=== PATIENT | female | born 1930 | race Caucasian/White ===

== ENCOUNTER 2018-05-05 14:59 | Inpatient (IN) ==
--- NOTE | 2018-05-05 16:42 | XR ---
EXAM DATE: 05/05/2018 4:30 PM EST AGE/SEX: 87 years / Female INDICATIONS: Short of breath CLINICAL DATA: This is the patient's initial encounter. Patient reports that signs and symptoms have been present for 1 day and indicates a pain score of Nonresponsive. MEDICAL/SURGICAL HISTORY: Non-responsive. Non-responsive. COMPARISON: . FINDINGS: Cardiomegaly present with basilar airspace disease and small pleural effusions. Findings most charact eristic of mild congestive heart failure. No pneumothorax. Tortuous aorta. Cardiomegaly with basilar airspace disease and small effusions most characteristic of mild congestive heart failure. CONCLUSION: Electronically signed by: Abdulaziz Kay MD Board Certified Radiologist 05/05/2018 4:41 PM EST
[2018-05-05 16:53] LABS: Baso # (Auto) 0.1 th/mm3 (0.0-0.2); Baso % (Auto) 0.8 % (0.0-2.0); Eos # (Auto) 0.1 th/mm3 (0.0-0.4); Eos % (Auto) 1.1 % (0.0-4.0); Hematocrit 40.7 % (35.0-46.0); Hemoglobin 13.7 gm/dL (11.6-15.3); Lymph # (Auto) 1.3 th/mm3 (1.0-4.8); Lymph % (Auto) 15.8 % (9.0-44.0); Mean Corpuscular HGB Conc 33.7 % (32.0-36.0); Mean Corpuscular Hemoglobin 29.1 pg (27.0-34.0); Mean Corpuscular Volume 86.3 fL (80.0-100.0); Mean Platelet Volume 8.2 fL (7.0-11.0); Mono # (Auto) 0.6 th/mm3 (0.0-0.9); Neut # (Auto) 6.1 th/mm3 (1.8-7.7); Neut % (Auto) 75.3 % (16.0-70.0); Platelet Count 226 th/mm3 (150-450); Red Blood Count 4.72 mil/mm3 (4.00-5.30); Red Cell Distribution Width 16.2 % (11.6-17.2); White Blood Count 8.1 th/mm3 (4.0-11.0)
[2018-05-05 17:13] LABS: Albumin 3.2 g/dL (3.4-5.0); Anion Gap 9 meq/L (5-15); Aspartate Aminotransferase 29 U/L (15-37); Blood Urea Nitrogen 16 mg/dL (7-18); Calcium 8.7 mg/dL (8.5-10.1); Carbon Dioxide 32.3 meq/L (21.0-32.0); Chloride 101 meq/L (98-107); Glomerular Filtration Rate 50 mL/min (>89); Glucose,Random 122 mg/dL (74-106); Magnesium 2.1 mg/dL (1.5-2.5); Potassium 3.4 meq/L (3.5-5.1); Sodium 142 meq/L (136-145)
[2018-05-05] MEDS ORDERED: ALPRAZolam 0.25 MG Tablet PO ONE (17:16)
[2018-05-05 17:25] LABS: Alanine Aminotransferase 35 U/L (10-53); Alkaline Phosphatase 96 U/L (45-117); Total Protein 6.1 g/dL (6.4-8.2)
[2018-05-05 18:05] LABS: Bilirubin,Urine Negative (Negative); Clarity,Urine Clear (Clear); Color,Urine Yellow (Yellw/Straw); Glucose,Urine (UA) Negative (Negative); Leukocyte Esterase,Urine Negative (Negative); Mucus,Urine Few /lpf (Occasional); Nitrite,Urine Negative (Negative); Specific Gravity,Urine 1.013 (1.002-1.035)
--- NOTE | 2018-05-05 18:23 | ED ---
HPI General Chief complaint: Medical Clearance Stated complaint: abd pain Time Seen by Provider: 05/05/18 15:28 Source: patient, family and EMS Mode of arrival: EMS Limitations: other History of Present Illness HPI narrative: Patient is an 87-year-old female presenting to the emergency department via EMS after experiencing shortness of breath at her living facility. Patient went outside, she then laid herself on the ground and started yelling that she could not breathe. This was witnessed, patient did not hurt herself or hit her head. When EMS arrived on scene her O2 sat saturation was 93% on room air. Patient normally wears oxygen, she was not wearing oxygen at the time that she went outside. She is new to the area, she moved here to be closer to her family. Patient is not forthcoming with information. She continues to repeat that she is not wanting to be a burden to her family and what ever her son says is what she says. She reported that she is indifferent as to whether or not she lives or dies but denies any suicidal ideations. Patient does report shortness of breath. Her son states that she was diagnosed with congestive heart failure approximately 1 month ago. Patient has a history of depression, she is currently on Paxil 20 mg daily. She states she has been on this dose since her mother well over 10-15 years ago. Patient is tearful. She is answering questions vaguely. Patient states she cannot remember anything, she reports that she does not know why she told staff to call 911. Related Data Home Medications Medication Instructions Recorded Confirmed apixaban [Eliquis] 2.5 mg PO BID 05/05/18 05/05/18 aspirin 81 mg PO DAILY 05/05/18 05/05/18 atorvastatin 10 mg PO DAILY 05/05/18 05/05/18 furosemide 40 mg PO DAILY 05/05/18 05/05/18 gabapentin 200 mg PO DAILY 05/05/18 05/05/18 metoprolol tartrate 50 mg PO BID 05/05/18 05/05/18 pantoprazole 40 mg PO DAILY 05/05/18 05/05/18 paroxetine HCl 20 mg PO DAILY 05/05/18 05/05/18 potassium chloride 10 meq PO BID 05/05/18 05/05/18 quinapril 20 mg PO BID 05/05/18 05/05/18 Allergies Allergy/AdvReac Type Severity Reaction Status Date / Time Penicillins Allergy Anaphylaxis Verified 05/05/18 16:13 procaine [From Novocain] Allergy Itching Verified 05/05/18 16:13 Review of Systems ROS: all other systems reviewed are negative PMFSH Medical History Medical History Anxiety (Acute) CHF (congestive heart failure) (Acute) COPD (chronic obstructive pulmonary disease) (Acute) Depression (Acute) Social History Social History Substance History: No History of Abuse Second Hand Smoke Exposure: No Smoking Status: Former smoker Tobacco Type: Cigarettes How Often Do You Have a Drink Containing Alcohol: Never Recent Travel in [facility] within the Last 8 Weeks: No Recent Out of Country Travel within the Last 8 Weeks: No Immunization History Tetanus Immunization: Unsure Exam Narrative Exam Narrative: GENERAL: Well-developed, well-nourished, alert elderly female. Presenting in no acute distress. SKIN: Focused skin assessment warm/dry. HEAD: Atraumatic. Normocephalic. EYES: Pupils equal and round. No scleral icterus. No injection or drainage. ENT: No nasal bleeding or discharge. Mucous membranes pink and moist. NECK: Trachea midline. No JVD. CARDIOVASCULAR: Regular rate and rhythm. No murmur appreciated. RESPIRATORY: No accessory muscle use. Clear to auscultation. Breath sounds equal bilaterally. GASTROINTESTINAL: Abdomen soft, non-tender, nondistended. Hepatic and splenic margins not palpable. MUSCULOSKELETAL: No obvious deformities. No clubbing. No cyanosis. No edema. NEUROLOGICAL: Awake and alert. No obvious cranial nerve deficits. Motor grossly within normal limits. Normal speech. PSYCHIATRIC: Depressed mood and anxious affect; insight and judgment normal. Course Initial Documented Vital Signs Temperature 98.7 F 05/05/18 15:14 Pulse Rate 66 05/05/18 15:14 Respiratory Rate 22 05/05/18 15:14 Blood Pressure 125/58 L 05/05/18 15:14 Pulse Oximetry 98 05/05/18 15:14 Last Documented Vital Signs Temperature 98.1 F 05/13/18 16:00 Pulse Rate 103 H 05/13/18 16:00 Respiratory Rate 20 05/13/18 16:00 Blood Pressure 111/64 05/13/18 16:00 Pulse Oximetry 98 05/13/18 16:00 Medical Decision Making MDM Narrative Medical decision making narrative: Patient presented with her family, she downplayed any physical symptoms initially stating that she felt whenever her son said she feels. Workup was initiated, labs and imaging ordered. Patient appeared anxious on arrival, she was given Xanax 0.25 mg orally. EKG shows afib w/ RVR at a rate of 102. Pt has hx of afib. Chest x-ray shows mild CHF. CBC with no acute findings, chemistry with potassium at 3.4, oral replacement was ordered. BNP is elevated at 904. Patient was reassessed, she continues to appear very anxious, she started to report abdominal pain, she was tender diffusely. CT scan of the abdomen and pelvis ordered. Ativan 0.5 mg IV x1 dose ordered. Additionally patient will be given Lasix IV. Will reassess. Ct of the abd/pelvis resulted, showed a previous repair of a AAA with possible endoleak. Discussed with my attending physician. Consulted vascular surgery, Dr. Hawthorne. No emergent intervention. Consult placed, he will evaluate patient in the AM. He does not believe this is the cause of patients abdominal pain. Pt will be admitted for obervation, discussed with Dr. Lama who accepted admit. Discussed need for psych eval for depression/anxiety as well. HR has been between 95-102, pt is anxious. She was given additional dose of IV ativan. Medical Screen Exam Complete: Yes Emergency Medical Condition: Yes Differential Diagnosis Differential Diagnosis: CHF versus metabolic abnormality versus COPD exacerbation versus arrhythmia versus depression versus other Lab Data Lab results reviewed: Yes I reviewed the patient's lab results. Result diagrams: 05/07/18 07:35 05/13/18 11:41 Lab Results 05/05/18 05/05/18 05/05/18 Range/Units 16:39 16:39 16:39 WBC 8.1 (4.0-11.0) th/mm3 RBC 4.72 (4.00-5.30) mil/mm3 Hgb 13.7 (11.6-15.3) gm/dL Hct 40.7 (35.0-46.0) % MCV 86.3 (80.0-100.0) fL MCH 29.1 (27.0-34.0) pg MCHC 33.7 (32.0-36.0) % RDW 16.2 (11.6-17.2) % Plt Count 226 (150-450) th/mm3 MPV 8.2 (7.0-11.0) fL Neut % (Auto) 75.3 H (16.0-70.0) % Lymph % (Auto) 15.8 (9.0-44.0) % [place] % (Auto) 7.0 (0.0-8.0) % Eos % (Auto) 1.1 (0.0-4.0) % Baso % (Auto) 0.8 (0.0-2.0) % Neut # (Auto) 6.1 (1.8-7.7) th/mm3 Lymph # (Auto) 1.3 (1.0-4.8) th/mm3 [place] # (Auto) 0.6 (0.0-0.9) th/mm3 Eos # (Auto) 0.1 (0.0-0.4) th/mm3 Baso # (Auto) 0.1 (0.0-0.2) th/mm3 WBC Differential . Differential Comment Auto diff final Sodium 142 (136-145) meq/L Potassium 3.4 L (3.5-5.1) meq/L Chloride 101 (98-107) meq/L Carbon Dioxide 32.3 H (21.0-32.0) meq/L Anion Gap 9 (5-15) meq/L BUN 16 (7-18) mg/dL Creatinine 1.04 H (0.50-1.00) mg/dL Estimated GFR 50 L (>89) mL/min Random Glucose 122 H (74-106) mg/dL Calcium 8.7 (8.5-10.1) mg/dL Magnesium 2.1 (1.5-2.5) mg/dL Total Bilirubin 0.8 (0.2-1.0) mg/dL AST 29 (15-37) U/L ALT 35 (10-53) U/L Alkaline Phosphatase 96 (45-117) U/L Troponin I Less than 0.02 L (0.02-0.05) ng/mL B-Natriuretic Peptide 905 H (0-100) pg/mL Total Protein 6.1 L (6.4-8.2) g/dL Albumin 3.2 L (3.4-5.0) g/dL TSH 1.920 (0.358-3.740) uIU/mL Urine Color (Yellw/Straw) Urine Clarity (Clear) Urine pH (5.0-8.5) Ur Specific [place] (1.002-1.035) Urine Protein (Neg-Trace) mg/dL Urine Glucose (UA) (Negative) mg/dL Urine Ketones (Negative) mg/dL Urine Occult Blood (Negative) Urine Nitrate (Negative) Urine Bilirubin (Negative) Urine Urobilinogen (Less than 2) mg/dL Ur Leukocyte Esterase (Negative) Urine RBC (0-3) /hpf Urine WBC (0-5) /hpf Urine Mucus (Occasional) /lpf Micro UA Comment Ur Microscopic Review Urine Culture Comments 05/05/18 05/06/18 05/06/18 Range/Units 17:30 00:44 03:34 WBC 8.9 (4.0-11.0) th/mm3 RBC 4.81 (4.00-5.30) mil/mm3 Hgb 13.7 (11.6-15.3) gm/dL Hct 41.7 (35.0-46.0) % MCV 86.7 (80.0-100.0) fL MCH 28.5 (27.0-34.0) pg MCHC 32.8 (32.0-36.0) % RDW 16.4 (11.6-17.2) % Plt Count 213 (150-450) th/mm3 MPV 8.5 (7.0-11.0) fL Neut % (Auto) 65.8 (16.0-70.0) % Lymph % (Auto) 23.1 (9.0-44.0) % [place] % (Auto) 7.9 (0.0-8.0) % Eos % (Auto) 2.2 (0.0-4.0) % Baso % (Auto) 1.0 (0.0-2.0) % Neut # (Auto) 5.9 (1.8-7.7) th/mm3 Lymph # (Auto) 2.1 (1.0-4.8) th/mm3 [place] # (Auto) 0.7 (0.0-0.9) th/mm3 Eos # (Auto) 0.2 (0.0-0.4) th/mm3 Baso # (Auto) 0.1 (0.0-0.2) th/mm3 WBC Differential . Differential Comment Auto diff final Sodium (136-145) meq/L Potassium (3.5-5.1) meq/L Chloride (98-107) meq/L Carbon Dioxide (21.0-32.0) meq/L Anion Gap (5-15) meq/L BUN (7-18) mg/dL Creatinine (0.50-1.00) mg/dL Estimated GFR (>89) mL/min Random Glucose (74-106) mg/dL Calcium (8.5-10.1) mg/dL Magnesium (1.5-2.5) mg/dL Total Bilirubin (0.2-1.0) mg/dL AST (15-37) U/L ALT (10-53) U/L Alkaline Phosphatase (45-117) U/L Troponin I Less than 0.02 L (0.02-0.05) ng/mL B-Natriuretic Peptide (0-100) pg/mL Total Protein (6.4-8.2) g/dL Albumin (3.4-5.0) g/dL TSH (0.358-3.740) uIU/mL Urine Color Yellow (Yellw/Straw) Urine Clarity Clear (Clear) Urine pH 7.0 (5.0-8.5) Ur Specific [place] 1.013 (1.002-1.035) Urine Protein Negative (Neg-Trace) mg/dL Urine Glucose (UA) Negative (Negative) mg/dL Urine Ketones Negative (Negative) mg/dL Urine Occult Blood Negative (Negative) Urine Nitrate Negative (Negative) Urine Bilirubin Negative (Negative) Urine Urobilinogen 1.0 (Less than 2) mg/dL Ur Leukocyte Esterase Negative (Negative) Urine RBC 1 (0-3) /hpf Urine WBC Less than 1 (0-5) /hpf Urine Mucus Few H (Occasional) /lpf Micro UA Comment Cath-culture not ind Ur Microscopic Review Not Reportable Urine Culture Comments Cath-cult not ind 05/06/18 05/07/18 05/07/18 Range/Units 03:34 07:35 07:35 WBC 6.6 (4.0-11.0) th/mm3 RBC 4.79 (4.00-5.30) mil/mm3 Hgb 14.3 (11.6-15.3) gm/dL Hct 40.9 (35.0-46.0) % MCV 85.5 (80.0-100.0) fL MCH 29.8 (27.0-34.0) pg MCHC 34.8 (32.0-36.0) % RDW 16.2 (11.6-17.2) % Plt Count 234 (150-450) th/mm3 MPV 8.2 (7.0-11.0) fL Neut % (Auto) 79.6 H (16.0-70.0) % Lymph % (Auto) 15.4 (9.0-44.0) % [place] % (Auto) 4.3 (0.0-8.0) % Eos % (Auto) 0.1 (0.0-4.0) % Baso % (Auto) 0.6 (0.0-2.0) % Neut # (Auto) 5.2 (1.8-7.7) th/mm3 Lymph # (Auto) 1.0 (1.0-4.8) th/mm3 [place] # (Auto) 0.3 (0.0-0.9) th/mm3 Eos # (Auto) 0.0 (0.0-0.4) th/mm3 Baso # (Auto) 0.0 (0.0-0.2) th/mm3 WBC Differential . Differential Comment Auto diff final Sodium 141 137 (136-145) meq/L Potassium 3.6 3.9 (3.5-5.1) meq/L Chloride 100 98 (98-107) meq/L Carbon Dioxide 35.8 H 32.7 H (21.0-32.0) meq/L Anion Gap 5 6 (5-15) meq/L BUN 15 18 (7-18) mg/dL Creatinine 0.91 0.81 (0.50-1.00) mg/dL Estimated GFR 59 L 67 L (>89) mL/min Random Glucose 122 H 140 H (74-106) mg/dL Calcium 9.0 9.2 (8.5-10.1) mg/dL Magnesium (1.5-2.5) mg/dL Total Bilirubin 0.6 (0.2-1.0) mg/dL AST 26 (15-37) U/L ALT 30 (10-53) U/L Alkaline Phosphatase 94 (45-117) U/L Troponin I Less than 0.02 L (0.02-0.05) ng/mL B-Natriuretic Peptide (0-100) pg/mL Total Protein 6.0 L (6.4-8.2) g/dL Albumin 3.1 L (3.4-5.0) g/dL TSH (0.358-3.740) uIU/mL Urine Color (Yellw/Straw) Urine Clarity (Clear) Urine pH (5.0-8.5) Ur Specific [place] (1.002-1.035) Urine Protein (Neg-Trace) mg/dL Urine Glucose (UA) (Negative) mg/dL Urine Ketones (Negative) mg/dL Urine Occult Blood (Negative) Urine Nitrate (Negative) Urine Bilirubin (Negative) Urine Urobilinogen (Less than 2) mg/dL Ur Leukocyte Esterase (Negative) Urine RBC (0-3) /hpf Urine WBC (0-5) /hpf Urine Mucus (Occasional) /lpf Micro UA Comment Ur Microscopic Review Urine Culture Comments 05/13/18 05/13/18 Range/Units 08:45 11:41 WBC (4.0-11.0) th/mm3 RBC (4.00-5.30) mil/mm3 Hgb (11.6-15.3) gm/dL Hct (35.0-46.0) % MCV (80.0-100.0) fL MCH (27.0-34.0) pg MCHC (32.0-36.0) % RDW (11.6-17.2) % Plt Count (150-450) th/mm3 MPV (7.0-11.0) fL Neut % (Auto) (16.0-70.0) % Lymph % (Auto) (9.0-44.0) % [place] % (Auto) (0.0-8.0) % Eos % (Auto) (0.0-4.0) % Baso % (Auto) (0.0-2.0) % Neut # (Auto) (1.8-7.7) th/mm3 Lymph # (Auto) (1.0-4.8) th/mm3 [place] # (Auto) (0.0-0.9) th/mm3 Eos # (Auto) (0.0-0.4) th/mm3 Baso # (Auto) (0.0-0.2) th/mm3 WBC Differential Differential Comment Sodium 128 L 129 L (136-145) meq/L Potassium 4.7 4.4 (3.5-5.1) meq/L Chloride 95 L 93 L (98-107) meq/L Carbon Dioxide 29.3 30.2 (21.0-32.0) meq/L Anion Gap 4 L 6 (5-15) meq/L BUN 20 H 20 H (7-18) mg/dL Creatinine 0.71 0.71 (0.50-1.00) mg/dL Estimated GFR 78 L 78 L (>89) mL/min Random Glucose 99 104 (74-106) mg/dL Calcium 9.0 9.0 (8.5-10.1) mg/dL Magnesium (1.5-2.5) mg/dL Total Bilirubin (0.2-1.0) mg/dL AST (15-37) U/L ALT (10-53) U/L Alkaline Phosphatase (45-117) U/L Troponin I (0.02-0.05) ng/mL B-Natriuretic Peptide (0-100) pg/mL Total Protein (6.4-8.2) g/dL Albumin (3.4-5.0) g/dL TSH (0.358-3.740) uIU/mL Urine Color (Yellw/Straw) Urine Clarity (Clear) Urine pH (5.0-8.5) Ur Specific [place] (1.002-1.035) Urine Protein (Neg-Trace) mg/dL Urine Glucose (UA) (Negative) mg/dL Urine Ketones (Negative) mg/dL Urine Occult Blood (Negative) Urine Nitrate (Negative) Urine Bilirubin (Negative) Urine Urobilinogen (Less than 2) mg/dL Ur Leukocyte Esterase (Negative) Urine RBC (0-3) /hpf Urine WBC (0-5) /hpf Urine Mucus (Occasional) /lpf Micro UA Comment Ur Microscopic Review Urine Culture Comments Imaging Data Radiologist's impression: Chest X-Ray 05/05/18 16:18 CONCLUSION: Head CT 05/05/18 16:18 CONCLUSION: 1. No acute findings. Mild chronic white matter ischemic changes. . Abdomen/Pelvis CT 05/05/18 19:33 CONCLUSION: 1. Status post endovascular repair of a large abdominal aortic aneurysm with possible small endoleak inferiorly within the aneurysm sac. 2. Otherwise no acute findings within the abdomen and pelvis. No bowel obstruction, free fluid or free air. 3. Small to moderate right pleural effusion with right basilar and mild left basilar airspace disease. Cardiomegaly. Discharge Plan Discharge Disposition Patient Disposition: ED Admit(ED Internal Use Only) Discharge Condition Condition: Stable Discharge Order Discharge Orders: Discharge Order (Routine); Ordered 05/13/18 Ordered By: Aurelio Adam ED Use Only Admit Order (Routine); Ordered 05/05/18 Ordered By: Naye Maloney Discharge Details Anticipated Discharge Date: 05/11/18 Diagnosis: Atrial fibrillation with rapid ventricular response, CHF (congestive heart failure), Endoleak post endovascular aneurysm repair, Anxiety and depression Physicians Team ED Provider: Ghassan Weller ED Midlevel Provider: Naye Maloney Primary Care Provider: UNKNOWN, Attending Provider: Aurelio Adam Other Providers: Rodo Hawthorne ; Shant Bran ; Deon Loredo ; Alex Hurley ; [facility],Agency Status ED Status: Left Department Discharge Information Discharge Date/Time: 05/05/18 23:17
--- NOTE | 2018-05-05 18:32 | CT ---
EXAM DATE: 05/05/2018 6:22 PM EST AGE/SEX: 87 years / Female INDICATIONS: Altered mental status. CLINICAL DATA: This is the patient's initial encounter. Patient reports that signs and symptoms have been present for 1 day and indicates a pain score of 0/10. MEDICAL/SURGICAL HISTORY: Chronic obstructive pulmonary disease. Congestive heart failure. None. RADIATION DOSE: 56.35 CTDI (mGy) COMPARISON: No prior exams available for comparison. TECHNIQUE: CT of the head without contrast. Using automated exposure control and adjustment of the mA and/or kV according to patient size, radiation dose was kept as low as reasonably achievable to ob tain optimal diagnostic quality images. DICOM format image data is available electronically for revi ew and comparison. FINDINGS: Cerebrum: The ventricles are normal for age. No evidence of midline shift, mass lesion, hemorrhage or acute infarction. No extraaxial fluid collections are seen. Posterior Fossa: The cerebellum and brainstem are intact. The 4th ventricle is midline. The cerebe llopontine angle is unremarkable. Extracranial: The visualized portion of the orbits is intact. Skull: The calvaria is intact. No evidence of skull fracture. CONCLUSION: 1. No acute findings. Mild chronic white matter ischemic changes. . Electronically signed by: Abdulaziz Kay MD Board Certified Radiologist 05/05/2018 6:30 PM EST
[2018-05-05] MEDS ORDERED: Metoprolol Inj 5 MG/5 ML Vial IV.PUSH ONE ×2 (18:56→21:49)
--- NOTE | 2018-05-05 20:28 | ECG ---
Date Performed: 05/05/2018 Time Performed: 17:13:04 PTAGE: 87 years EKG: ATRIAL FIBRILLATION WITH RAPID VENTRICULAR RESPONSE BORDERLINE LEFT AXIS DEVIATION NONSPECI FIC ST & T-WAVE ABNORMALITY ABNORMAL RHYTHM ECG NO PREVIOUS TRACING DOCTOR: Severiano Sahu Interpretating Date/Time 05/05/2018 20:27:25
--- NOTE | 2018-05-05 21:14 | CT ---
EXAM DATE: 05/05/2018 8:41 PM EST AGE/SEX: 87 years / Female INDICATIONS: Abdominal pain since November CLINICAL DATA: This is the patient's initial encounter. Patient reports that signs and symptoms have been present for 1 day and indicates a pain score of 6/10. MEDICAL/SURGICAL HISTORY: Congestive heart failure. Chronic obstructive pulmonary disease. Non e. ORAL CONTRAST: No oral contrast ingested. RADIATION DOSE: 16.23 CTDI (mGy) COMPARISON: No prior exams available for comparison. TECHNIQUE: Multiple contiguous axial images were obtained through the abdomen and pelvis following b olus infusion of 94 ml Omnipaque 350 (iohexol) nonionic water-soluble contrast as a single exam dos e. No oral contrast ingested. Using automated exposure control and adjustment of the mA and/or kV ac cording to patient size, radiation dose was kept as low as reasonably achievable to obtain optimal di agnostic quality images. DICOM format image data is available electronically for review and comparis on. FINDINGS: No prior study for comparison. There is a moderate size right pleural effusion with right basilar lung consolidation and atelectasis . Heart size enlarged. Mild fatty liver. Spleen, adrenals, kidneys and pancreas demonstrate no acute findings. There is previous endovascular repair a large abdominal aortic aneurysm. Possible small endoleak infe riorly within the aneurysm sac. No pelvic masses or adenopathy. No free fluid. No bowel obstruction. CONCLUSION: 1. Status post endovascular repair of a large abdominal aortic aneurysm with possible small endoleak inferiorly within the aneurysm sac. 2. Otherwise no acute findings within the abdomen and pelvis. No bowel obstruction, free fluid or fr ee air. 3. Small to moderate right pleural effusion with right basilar and mild left basilar airspace diseas e. Cardiomegaly. Electronically signed by: Abdulaziz Kay MD Board Certified Radiologist 05/05/2018 9:13 PM EST
[2018-05-05] MEDS ORDERED: Acetaminophen 325 MG Tablet PO PRN (21:48)
[2018-05-05] MEDS ORDERED: Bisacodyl 10 MG Supp RECTAL PRN (21:48)
--- NOTE | 2018-05-05 21:51 | P.HPIM ---
History of Present Illness Primary Care Physician: UNKNOWN History of Present Illness: This is an 87-year-old female with a PMH of Anxiety , Depression, A-fib, COPD and CHF who was brought to the ER from [facility] for complaints of SOB and abdominal pain. Pt is very poor historian, difficult to obtain history due to significant anxiety and agitation. Does state she's been having abdominal pain "for a long time". Denies nausea or vomiting. Notes SOB somewhat improved, denies chest pain. On arrival, BP 125/58, HR 66, O2 sat 98% on RA, Afebrile. While in ER had episode of A-fib w/ RVR, HR 120's s/p Metoprolol w/ improvement, has not taken home meds today. CBC unremarkable. Chemistry essentially unremarkable. Troponin negative. BNP 905. UA negative. CT Head no acute findings. CXR with cardiomegaly and small pleural effusions. CT Abdomen/Pelvis endovascular repair of large abdominal aortic aneurysm with possible small endoleak. Dr. Hawthorne consulted, will eval in am, no emergent surgical intervention indicated. Diagnosis (1) Atrial fibrillation with rapid ventricular response: (2) CHF (congestive heart failure): (3) Endoleak post endovascular aneurysm repair: (4) Anxiety and depression: Review of Systems PAST FAMILY HISTORY: Reviewed. No h/o DM or CAD Review of Systems: all other systems reviewed are negative [facility] Medical History Medical History Anxiety (Acute) CHF (congestive heart failure) (Acute) COPD (chronic obstructive pulmonary disease) (Acute) Depression (Acute) Social History Social History Substance History: Unable to Obtain Smoking Status: Unknown if ever smoked How Often Do You Have a Drink Containing Alcohol: Unable to Obtain Immunization History Tetanus Immunization: Unsure Medications and Allergies Allergies Allergy/AdvReac Type Severity Reaction Status Date / Time Penicillins Allergy Anaphylaxis Verified 05/05/18 16:13 procaine [From Novocain] Allergy Itching Verified 05/05/18 16:13 Home Medications Medication Instructions Recorded Confirmed Type apixaban [Eliquis] 2.5 mg PO BID 05/05/18 05/05/18 History aspirin 81 mg PO DAILY 05/05/18 05/05/18 History atorvastatin 10 mg PO DAILY 05/05/18 05/05/18 History furosemide 40 mg PO DAILY 05/05/18 05/05/18 History gabapentin 200 mg PO DAILY 05/05/18 05/05/18 History metoprolol tartrate 50 mg PO BID 05/05/18 05/05/18 History pantoprazole 40 mg PO DAILY 05/05/18 05/05/18 History paroxetine HCl 20 mg PO DAILY 05/05/18 05/05/18 History potassium chloride 10 meq PO BID 05/05/18 05/05/18 History quinapril 20 mg PO BID 05/05/18 05/05/18 History Active Medications: Active Medications Acetaminophen (Tylenol) 650 mg PO Q4H PRN PRN Reason: Temp > 100.4 Apixaban (Eliquis) 2.5 mg PO BID OMARI Sodium Chloride (Ns Flush) 2 ml IV.FLUSH PRN PRN PRN Reason: FLUSH AFTER USING IV ACCESS Physical Exam Vital signs: Last Vital Signs Temp 98.7 F 05/05/18 15:14 Pulse 102 H 05/05/18 21:00 Resp 20 05/05/18 21:00 BP 147/89 H 05/05/18 21:00 Pulse Ox 97 05/05/18 21:00 Intake & Output 05/03/18 05/04/18 05/05/18 05/06/18 06:59 06:59 06:59 06:59 Weight 72.575 kg Narrative: PE: GENERAL: Elderly white female in no acute distress. SKIN: Focused skin assessment warm and dry. HEENT: PERRLA, EOMI. No scleral icterus or conjunctival pallor. No lid lag or facial droop. CARDIOVASCULAR: Regular rate and rhythm. No obvious murmurs to auscultation. No chest tenderness to palpation. RESPIRATORY: No obvious rhonchi or wheezing. Clear to auscultation. Breath sounds equal bilaterally. GASTROINTESTINAL: Abdomen soft, non-tender, nondistended. BS normal. MUSCULOSKELETAL: Extremities without clubbing, cyanosis, or edema. No obvious deformities. NEUROLOGICAL: Awake, alert. No focal neurologic deficits. Moving both upper and lower extremities spontaneously. PSYCHIATRIC: Appropriate mood and affect. Insight and judgment normal. Results Labs CBC & Chem 7: 05/05/18 16:39 05/05/18 16:39 Imaging Impressions Chest X-Ray 05/05/18 16:18 CONCLUSION: Head CT 05/05/18 16:18 CONCLUSION: 1. No acute findings. Mild chronic white matter ischemic changes. . Abdomen/Pelvis CT 05/05/18 19:33 CONCLUSION: 1. Status post endovascular repair of a large abdominal aortic aneurysm with possible small endoleak inferiorly within the aneurysm sac. 2. Otherwise no acute findings within the abdomen and pelvis. No bowel obstruction, free fluid or free air. 3. Small to moderate right pleural effusion with right basilar and mild left basilar airspace disease. Cardiomegaly. Caprini VTE Risk Assessment Caprini VTE Risk Assessment: No/Low Risk (score <= 1) Caprini Risk Assessment Model: Point Value = 1 Point Value = 2 Point Value = 3 Point Value = 5 Age 41-60 Minor surgery BMI > 25 kg/m2 Swollen legs Varicose veins or History of unexplained or recurrent spontaneous Oral contraceptives or hormone replacement Sepsis (< 1 month) Serious lung disease, including pneumonia (< 1 month) Abnormal pulmonary function Acute myocardial infarction Congestive heart failure (< 1 month) History of inflammatory bowel disease Medical patient at bed rest Age 61-74 Arthroscopic surgery Major open surgery (> 45 min) Laparoscopic surgery (> 45 min) Malignancy Confined to bed (> 72 hours) Immobilizing plaster cast Central venous access Age >= 75 History of VTE Family history of VTE Factor V Leiden Prothrombin [id number] Lupus anticoagulant Anticardiolipin antibodies Elevated serum homocysteine Heparin-induced thrombocytopenia Other congenital or acquired thrombophilia Stroke (< 1 month) Elective arthroplasty Hip, pelvis, or leg fracture Acute spinal cord injury (< 1 month) Prophylaxis Regimen: Total Risk Factor Score Risk Level Prophylaxis Regimen 0-1 Low Early ambulation 2 Moderate Order ONE of the following: *Sequential Compression Device (SCD) *Heparin 5000 units SQ BID 3-4 Higher Order ONE of the following medications: *Heparin 5000 units SQ TID *Enoxaparin/Lovenox 40 mg SQ daily (WT < 150 kg, CrCl > 30 mL/min) *Enoxaparin/Lovenox 30 mg SQ daily (WT < 150 kg, CrCl > 10-29 mL/min) *Enoxaparin/Lovenox 30 mg SQ BID (WT < 150 kg, CrCl > 30 mL/min) AND/OR *Sequential Compression Device (SCD) 5 or more Highest Order ONE of the following medications: *Heparin 5000 units SQ TID (Preferred with Epidurals) *Enoxaparin/Lovenox 40 mg SQ daily (WT < 150 kg, CrCl > 30 mL/min) *Enoxaparin/Lovenox 30 mg SQ daily (WT < 150 kg, CrCl > 10-29 mL/min) *Enoxaparin/Lovenox 30 mg SQ BID (WT < 150 kg, CrCl > 30 mL/min) AND *Sequential Compression Device (SCD) Assessment and Plan (1) Atrial fibrillation with rapid ventricular response: Code(s): I48.91 - Unspecified atrial fibrillation Status: Acute (2) CHF (congestive heart failure): Code(s): I50.9 - Heart failure, unspecified Status: Acute (3) Endoleak post endovascular aneurysm repair: Code(s): T82.330A - Leakage of aortic (bifurcation) graft (replacement), initial encounter Status: Acute (4) Anxiety and depression: Code(s): F41.9 - Anxiety disorder, unspecified; F32.9 - Major depressive disorder, single episode, unspecified Status: Acute Plan A/P: 1. CHF: Acute on Chronic, BNP 905, CXR w/ pleural effusions, s/p Lasix IV in ER. EF unknown, check Echo to eval for systolic function, monitor I/O, repeat labs in am. 2. Endoleak: h/o AAA repair, CT Abd/Pelvis w/ small endoleak, Dr. Hawthorne consulted, no emergent surgical intervention at this time, will kendrick in am. 3. A-fib: w/ RVR while in ER, missed meds today. Will monitor on telemetry, resume home medications 4. Depression: h/o Depression/Anxiety, Psych screen ordered in ER as pt exhibiting depression w/ flat affect, no overt suicidal ideation. 5. DVT Prophylaxis: SCD/Teds 6. Social work for d/c planning as needed 7. Case discussed w/ ER physician at length, labs/records/imaging reviewed by me. _ (1) CHF (congestive heart failure) Qualifiers: Heart failure chronicity: Heart failure type: other Qualified Code(s): I50.9 - Heart failure, unspecified (2) Endoleak post endovascular aneurysm repair Qualifiers: Encounter type: initial encounter Qualified Code(s): T82.330A - Leakage of aortic (bifurcation) graft (replacement), initial encounter
--- NOTE | 2018-05-05 22:59 | ECG ---
Date Performed: 05/05/2018 Time Performed: 19:36:12 PTAGE: 87 years EKG: ATRIAL FIBRILLATION WITH RAPID VENTRICULAR RESPONSE WITH ABERRANT CONDUCTION OR VENTRICULAR PREMATURE COMPLEXES ST/T-WAVE ABNORMALITY, CONSIDER LATERAL ISCHEMIA ABNORMAL ECG PREVIOUS TRACING : 05/05/2018 17.13 No significant change from previous tracing noted. DOCTOR: Severiano Sahu Interpretating Date/Time 05/05/2018 22:59:28
[2018-05-06 04:25] LABS: Baso # (Auto) 0.1 th/mm3 (0.0-0.2); Eos # (Auto) 0.2 th/mm3 (0.0-0.4); Eos % (Auto) 2.2 % (0.0-4.0); Hematocrit 41.7 % (35.0-46.0); Hemoglobin 13.7 gm/dL (11.6-15.3); Lymph # (Auto) 2.1 th/mm3 (1.0-4.8); Lymph % (Auto) 23.1 % (9.0-44.0); Mean Corpuscular HGB Conc 32.8 % (32.0-36.0); Mean Corpuscular Hemoglobin 28.5 pg (27.0-34.0); Mean Corpuscular Volume 86.7 fL (80.0-100.0); Mean Platelet Volume 8.5 fL (7.0-11.0); Mono # (Auto) 0.7 th/mm3 (0.0-0.9); Mono % (Auto) 7.9 % (0.0-8.0); Neut # (Auto) 5.9 th/mm3 (1.8-7.7); Neut % (Auto) 65.8 % (16.0-70.0); Platelet Count 213 th/mm3 (150-450); Red Blood Count 4.81 mil/mm3 (4.00-5.30); Red Cell Distribution Width 16.4 % (11.6-17.2); White Blood Count 8.9 th/mm3 (4.0-11.0)
[2018-05-06 04:43] LABS: Alanine Aminotransferase 30 U/L (10-53); Albumin 3.1 g/dL (3.4-5.0); Anion Gap 5 meq/L (5-15); Aspartate Aminotransferase 26 U/L (15-37); Blood Urea Nitrogen 15 mg/dL (7-18); Carbon Dioxide 35.8 meq/L (21.0-32.0); Chloride 100 meq/L (98-107); Glomerular Filtration Rate 59 mL/min (>89); Glucose,Random 122 mg/dL (74-106); Potassium 3.6 meq/L (3.5-5.1); Sodium 141 meq/L (136-145)
[2018-05-06 04:46] LABS: Alkaline Phosphatase 94 U/L (45-117)
[2018-05-06] MEDS ORDERED: QUINAPRIL 20 MG PO SCH (09:00)
[2018-05-06] MEDS: Senna/Docusate Sodium 8.6/50 MG Tablet PO SCH ×2 (09:43→20:30)
[2018-05-06] MEDS: Metoprolol Tartrate 50 MG Tablet PO SCH ×2 (09:44→20:30)
[2018-05-06] MEDS: Gabapentin 100 MG Capsule PO SCH (09:44)
--- NOTE | 2018-05-06 10:57 | P.CONVS ---
History of Present Illness Service: Vascular surgery Consult date: 05/06/18 Reason for Consult: Abdominal aortic aneurysm Primary Care Provider: UNKNOWN Chief Complaint: Abdominal pain History of Present Illness: 87-year-old female with a past medical history of infrarenal abdominal aorta aneurysm status post endovascular aneurysm repair. She presents with a chief complaint of shortness of breath and some abdominal pain that she has been experiencing for the past few months. She denies any fever or chills. She denies any nausea vomiting. Review of Systems All other systems reviewed negative except as stated in HPI [facility] - History History Provided By: Patient - Medical History Medical History: Medical History (Last Reviewed 05/05/18 @ 18:26 by MARVIN Kaminski) Anxiety CHF (congestive heart failure) COPD (chronic obstructive pulmonary disease) Depression - Tobacco History Second Hand Smoke Exposure: No Smoking Status: Former smoker Tobacco Type: Cigarettes - Alcohol History How Often Do You Have a Drink Containing Alcohol: Never - Substance Use History Substance History: No History of Abuse - Travel History Recent Travel in the [place] Within the Last 8 Weeks: No Recent Travel Out of the Country Within the Last 8 Weeks: No - Immunization History Tetanus Immunization: Unsure Medications and Allergies Active Medications: Active Medications Acetaminophen (Tylenol) 650 mg PO Q4H PRN PRN Reason: Temp > 100.4 Al Hydroxide/Mg Hydroxide (Milk Of Magnesia Liq) 30 ml PO Q12H PRN PRN Reason: Mild Constipation Apixaban (Eliquis) 2.5 mg PO BID [facility] Last Admin: 05/06/18 09:44 Dose: 2.5 mg Aspirin (Aspirin Chew) 81 mg PO DAILY [facility] Last Admin: 05/06/18 09:43 Dose: 81 mg Atorvastatin Calcium (Lipitor) 10 mg PO DAILY [facility] Last Admin: 05/06/18 09:43 Dose: 10 mg Bisacodyl (Dulcolax Supp) 10 mg RECTAL DAILY PRN PRN Reason: SEVERE CONSITIPATION Furosemide (Lasix Inj) 40 mg IV.PUSH BID@0900,1800 [facility] Last Admin: 05/06/18 09:43 Dose: 40 mg Gabapentin (Neurontin) 200 mg PO DAILY [facility] Last Admin: 05/06/18 09:44 Dose: 200 mg Lactulose (Lactulose Liq) 30 ml PO DAILY PRN PRN Reason: SEVERE CONSITIPATION Lisinopril (Prinivil) 20 mg PO BID [facility] Lorazepam (Ativan Inj) 1 mg IV.PUSH Q4H PRN PRN Reason: AGITATION Metoprolol Tartrate (Lopressor) 50 mg PO BID [facility] Last Admin: 05/06/18 09:44 Dose: 50 mg Ondansetron HCl (Zofran Inj) 4 mg IV.PUSH Q6H PRN PRN Reason: NAUSEA OR VOMITING Pantoprazole Sodium (Protonix) 40 mg PO DAILY [facility] Last Admin: 05/06/18 09:44 Dose: 40 mg Paroxetine HCl (Paxil) 20 mg PO DAILY [facility] Last Admin: 05/06/18 09:44 Dose: 20 mg Senna/Docusate Sodium (Janene-Colace) 1 tab PO BID [facility] Last Admin: 05/06/18 09:43 Dose: 1 tab Sennosides (Senokot) 17.2 mg PO Q12H PRN PRN Reason: Moderate Constipation Sodium Chloride (Ns Flush) 2 ml IV.FLUSH BID [facility] Last Admin: 05/06/18 09:43 Dose: 2 ml Sodium Chloride (Ns Flush) 2 ml IV.FLUSH PRN PRN PRN Reason: FLUSH AFTER USING IV ACCESS Allergies Allergy/AdvReac Type Severity Reaction Status Date / Time Penicillins Allergy Anaphylaxis Verified 05/05/18 16:13 procaine [From Novocain] Allergy Itching Verified 05/05/18 16:13 Home Medications Medication Instructions Recorded Confirmed Type apixaban [Eliquis] 2.5 mg PO BID 05/05/18 05/05/18 History aspirin 81 mg PO DAILY 05/05/18 05/05/18 History atorvastatin 10 mg PO DAILY 05/05/18 05/05/18 History furosemide 40 mg PO DAILY 05/05/18 05/05/18 History gabapentin 200 mg PO DAILY 05/05/18 05/05/18 History metoprolol tartrate 50 mg PO BID 05/05/18 05/05/18 History pantoprazole 40 mg PO DAILY 05/05/18 05/05/18 History paroxetine HCl 20 mg PO DAILY 05/05/18 05/05/18 History potassium chloride 10 meq PO BID 05/05/18 05/05/18 History quinapril 20 mg PO BID 05/05/18 05/05/18 History Physical Exam Vital Signs / I&O: Vital Signs 05/05/18 15:14 05/05/18 16:18 05/05/18 16:43 Temperature 98.7 F Pulse Rate 66 Respiratory Rate 22 Blood Pressure 125/58 L Pulse Oximetry 98 99 98 05/05/18 18:00 05/05/18 21:00 05/05/18 22:31 Temperature Pulse Rate 104 H 102 H 101 H Respiratory Rate 20 20 20 Blood Pressure 134/81 147/89 H 113/76 Pulse Oximetry 95 97 2 L 05/06/18 00:00 05/06/18 04:00 05/06/18 07:19 Temperature 98.2 F 98.3 F 98.5 F Pulse Rate 118 H 107 H 122 H Respiratory Rate 20 20 18 Blood Pressure 142/81 H 131/88 132/91 H Pulse Oximetry 97 96 95 Intake & Output 05/05/18 05/06/18 05/06/18 18:59 06:59 18:59 Weight 72.575 kg 72.575 kg Other: # Voids 2 Weight On Admission 72.575 kg Neuro: Patient is confused HEENT: Normocephalic atraumatic Neck: Supple Heart: S1-S2 Lungs: No wheezes no rhonchi Abdomen: Diffusely soft, nondistended, no rebound no peritoneal signs Vascular: Palpable femoral pulses bilaterally Laboratory Results - last 24 hr 05/05/18 05/05/18 05/05/18 16:39 16:39 16:39 WBC 8.1 RBC 4.72 Hgb 13.7 Hct 40.7 MCV 86.3 MCH 29.1 MCHC 33.7 RDW 16.2 Plt Count 226 MPV 8.2 Neut % (Auto) 75.3 H Lymph % (Auto) 15.8 [place] % (Auto) 7.0 Eos % (Auto) 1.1 Baso % (Auto) 0.8 Neut # (Auto) 6.1 Lymph # (Auto) 1.3 [place] # (Auto) 0.6 Eos # (Auto) 0.1 Baso # (Auto) 0.1 WBC Differential . Differential Comment Auto diff final Sodium 142 Potassium 3.4 L Chloride 101 Carbon Dioxide 32.3 H Anion Gap 9 BUN 16 Creatinine 1.04 H Estimated GFR 50 L Random Glucose 122 H Calcium 8.7 Magnesium 2.1 Total Bilirubin 0.8 AST 29 ALT 35 Alkaline Phosphatase 96 Troponin I Less than 0.02 L B-Natriuretic Peptide 905 H Total Protein 6.1 L Albumin 3.2 L TSH 1.920 Urine Color Urine Clarity Urine pH Ur Specific [place] Urine Protein Urine Glucose (UA) Urine Ketones Urine Occult Blood Urine Nitrate Urine Bilirubin Urine Urobilinogen Ur Leukocyte Esterase Urine RBC Urine WBC Urine Mucus Micro UA Comment Ur Microscopic Review Urine Culture Comments 05/05/18 05/06/18 05/06/18 17:30 00:44 03:34 WBC 8.9 RBC 4.81 Hgb 13.7 Hct 41.7 MCV 86.7 MCH 28.5 MCHC 32.8 RDW 16.4 Plt Count 213 MPV 8.5 Neut % (Auto) 65.8 Lymph % (Auto) 23.1 [place] % (Auto) 7.9 Eos % (Auto) 2.2 Baso % (Auto) 1.0 Neut # (Auto) 5.9 Lymph # (Auto) 2.1 [place] # (Auto) 0.7 Eos # (Auto) 0.2 Baso # (Auto) 0.1 WBC Differential . Differential Comment Auto diff final Sodium Potassium Chloride Carbon Dioxide Anion Gap BUN Creatinine Estimated GFR Random Glucose Calcium Magnesium Total Bilirubin AST ALT Alkaline Phosphatase Troponin I Less than 0.02 L B-Natriuretic Peptide Total Protein Albumin TSH Urine Color Yellow Urine Clarity Clear Urine pH 7.0 Ur Specific [place] 1.013 Urine Protein Negative Urine Glucose (UA) Negative Urine Ketones Negative Urine Occult Blood Negative Urine Nitrate Negative Urine Bilirubin Negative Urine Urobilinogen 1.0 Ur Leukocyte Esterase Negative Urine RBC 1 Urine WBC Less than 1 Urine Mucus Few H Micro UA Comment Cath-culture not ind Ur Microscopic Review Not Reportable Urine Culture Comments Cath-cult not ind 05/06/18 03:34 WBC RBC Hgb Hct MCV MCH MCHC RDW Plt Count MPV Neut % (Auto) Lymph % (Auto) [place] % (Auto) Eos % (Auto) Baso % (Auto) Neut # (Auto) Lymph # (Auto) [place] # (Auto) Eos # (Auto) Baso # (Auto) WBC Differential Differential Comment Sodium 141 Potassium 3.6 Chloride 100 Carbon Dioxide 35.8 H Anion Gap 5 BUN 15 Creatinine 0.91 Estimated GFR 59 L Random Glucose 122 H Calcium 9.0 Magnesium Total Bilirubin 0.6 AST 26 ALT 30 Alkaline Phosphatase 94 Troponin I Less than 0.02 L B-Natriuretic Peptide Total Protein 6.0 L Albumin 3.1 L TSH Urine Color Urine Clarity Urine pH Ur Specific [place] Urine Protein Urine Glucose (UA) Urine Ketones Urine Occult Blood Urine Nitrate Urine Bilirubin Urine Urobilinogen Ur Leukocyte Esterase Urine RBC Urine WBC Urine Mucus Micro UA Comment Ur Microscopic Review Urine Culture Comments Impressions Chest X-Ray 05/05/18 16:18 CONCLUSION: Head CT 05/05/18 16:18 CONCLUSION: 1. No acute findings. Mild chronic white matter ischemic changes. . Abdomen/Pelvis CT 05/05/18 19:33 CONCLUSION: 1. Status post endovascular repair of a large abdominal aortic aneurysm with possible small endoleak inferiorly within the aneurysm sac. 2. Otherwise no acute findings within the abdomen and pelvis. No bowel obstruction, free fluid or free air. 3. Small to moderate right pleural effusion with right basilar and mild left basilar airspace disease. Cardiomegaly. Assessment and Plan - Assessment (1) Endoleak post endovascular aneurysm repair Code(s): T82.330A - Leakage of aortic (bifurcation) graft (replacement), initial encounter Status: Acute - Plan CT angiography of the abdomen pelvis reviewed. Most likely type II endoleak I Could not find any previous CAT scan in the system to compare and evaluate for sac enlargement This is not the etiology of the patient current symptoms. Patient is currently refusing to discuss her options. I will continue to follow and have a better discussion with the patient. Thank you for allowing us to participate in this patient care. If you have any questions please do not hesitate to call my cell phone Rodo Hawthorne [facility] [phone] (1) Endoleak post endovascular aneurysm repair Qualifiers: Encounter type: initial encounter Qualified Code(s): T82.330A - Leakage of aortic (bifurcation) graft (replacement), initial encounter
[2018-05-06] MEDS: Lisinopril 20 MG Tablet PO SCH ×2 (11:54→22:13)
--- NOTE | 2018-05-06 15:33 | P.PNIM ---
Subjective Interval history: Patient reports continued shortness of breath and wheezing and has had productive yellow sputum over the past week. She reports she is usually on 2.5 L of oxygen at the independent living facility. She denies any active chest pain and palpitations. She reports her shortness of breath is worse with activity. She feels extremely fatigued and only wants to sleep. She reports no chills or fevers. She does not recall having been diagnosed with previous other arrhythmia problems. She reports she is not having active abdominal pain at this time. Has not had any diarrhea. Physical Exam Vital signs: Last Vital Signs Temp 98.4 F 05/06/18 11:31 Pulse 101 H 05/06/18 12:18 Resp 20 05/06/18 11:31 BP 102/70 05/06/18 11:31 Pulse Ox 96 05/06/18 11:31 Intake & Output 05/04/18 05/05/18 05/06/18 05/07/18 06:59 06:59 06:59 06:59 Weight 72.575 kg Narrative: frail elderly female lying in bed with her eyes shut on nasal cannula in no acute distress Cardiovascularirregular rhythm with mild tachycardic rate Lungs few expiratory wheeze with few right basilar crackles Abdomen soft epigastric tenderness nondistended, normal active bowel sounds Extremities no cyanosis clubbing or edema Neurological exam she was alert and oriented person place time does move bilateral upper and lower shins with generalized weakness Urinary Catheter Management Straight: Cath placed during this visit: yes, but has since been removed by the nurse Insertion date: 05/05/18 Insertion time: 17:20 Removal date: 05/05/18 Removal time: 17:24 Results Labs CBC & Chem 7: 05/06/18 03:34 05/06/18 03:34 Imaging Imaging: Impressions Chest X-Ray 05/05/18 16:18 CONCLUSION: Head CT 05/05/18 16:18 CONCLUSION: 1. No acute findings. Mild chronic white matter ischemic changes. . Abdomen/Pelvis CT 05/05/18 19:33 CONCLUSION: 1. Status post endovascular repair of a large abdominal aortic aneurysm with possible small endoleak inferiorly within the aneurysm sac. 2. Otherwise no acute findings within the abdomen and pelvis. No bowel obstruction, free fluid or free air. 3. Small to moderate right pleural effusion with right basilar and mild left basilar airspace disease. Cardiomegaly. Assessment and Plan (1) Endoleak post endovascular aneurysm repair: Code(s): T82.330A - Leakage of aortic (bifurcation) graft (replacement), initial encounter Status: Acute Plan 87-year-old white female with a history of COPD with 2.5 L of oxygen dependence , questionable history of congestive heart failure presents with one week history of increasing progressive shortness of breath and productive cough along with abdominal pain. Acute on chronic COPD exacerbation with underlying upper respiratory infection- nebs and will add steroids, wean oxygen as tolerated. Acute congestive heart failure exacerbationunknown EF we will check 2D echo continue with IV diuretics twice daily Nonsustained VT tach today on telemetry, patient remains asymptomatic, will consult cardiology admit to inpatient, [facility] for closer monitoring and further cardiac workup. Atrial fibrillation-continue metoprolol, Eliquis Abdominal aortic aneurysm type II graft endoleak -vascular surgery consult for further evaluation and recommendations. Vascular surgery does not feel this is etiology of her abdominal pain. Currently she does not complain of active abdominal pain. Consideration for GI consultation if recurrence of pain. DVT prophylaxis Eliquis Physical therapy consultation Progress Note: Quality VTE Deep Vein Thrombosis/Pulmonary Embolism Present on Admission: No _ (1) Endoleak post endovascular aneurysm repair Qualifiers: Encounter type: initial encounter Qualified Code(s): T82.330A - Leakage of aortic (bifurcation) graft (replacement), initial encounter
[2018-05-06] MEDS: predniSONE 20 MG Tablet PO SCH (20:30)
--- NOTE | 2018-05-06 23:28 | MB ---
cc: Deon Loredo DO DATE: 05/06/2018 REASON FOR CONSULTATION: Atrial fibrillation, wide complex tachycardia. HISTORY OF PRESENT ILLNESS: Gay Hurtado is a pleasant 87-year-old female who presented to [place] [facility] from [facility] due to shortness of breath and abdominal pain. The patient is a poor historian and tells me she does not want to be bothered so history is taken from the chart. Apparently, she has been having abdominal pain for a long time. She denies nausea or vomiting. She has had shortness of breath over the past week. Denies any chest pain. While here, she was found to be in atrial fibrillation with rapid ventricular response. She also had a wide complex tachycardia of 18 beats and because of this, I was asked to see her. PAST MEDICAL HISTORY: 1. Atrial fibrillation. 2. COPD. 3. Depression. 4. Anxiety. 5. Previous endovascular aneurysm repair with endoleak. PAST SURGICAL HISTORY: EVAR of previous abdominal aortic aneurysm. ALLERGIES: 1. PENICILLIN. 2. PROCAINE. MEDICATIONS: 1. Quinapril 20 mg b.i.d. 2. Potassium 10 mEq b.i.d. 3. Lasix 40 mg daily. 4. Aspirin 81 mg daily. 5. Protonix 40 mg daily. 6. Metoprolol tartrate 50 mg b.i.d. 7. Eliquis 2.5 mg b.i.d. 8. Paroxetine 20 mg daily. 9. Gabapentin 200 mg daily. 10. Lipitor 10 mg daily. FAMILY HISTORY: Denies sudden within the family. SOCIAL HISTORY: Unable to obtain. REVIEW OF SYSTEMS: Fourteen systems were reviewed including osteopathic. Pertinent positives and negatives as above, otherwise negative. PHYSICAL EXAMINATION: VITAL SIGNS: Temperature 98.4, heart rate 117, blood pressure 102/70, respirations 20, pulse oximetry 96% on 2 liters. GENERAL: The patient appears well, in no acute distress. She is resting comfortably in bed lying relatively flat. She does not participate well in the exam and does not want to be bothered. HEENT: Pupils are equal and reactive. Mucous membranes moist. NECK: Supple. No JVD noted. CARDIOVASCULAR: Irregularly irregular and tachycardic. A 1/6 holosystolic murmur noted at the apex. LUNGS: Decreased breath sounds, but poor inspiratory effort. ABDOMEN: She will not let me touch or examine. Abdomen is soft. No guarding or rebound noted. EXTREMITIES: Show no clubbing, cyanosis or edema. Femoral and distal pulses are intact bilaterally. NEUROLOGIC: She appears to move all 4 extremities. Unable to do full neurological exam due to patient compliance. SKIN: Warm, dry and intact. OSTEOPATHIC: Mild kyphoscoliosis. No lordosis or paraspinal tender points. LABORATORY DATA: Hemoglobin 13.7, hematocrit 41.7, platelets 213. Potassium 3.6, BUN 15, creatinine 0.91. Troponin negative x3. TSH 1.92. Electrocardiogram (05/05/2018 at 1936): Atrial fibrillation with rapid ventricular response, nonspecific ST-T wave changes. 1. Atrial fibrillation with rapid ventricular response with a history of atrial fibrillation. 1. Previous EVAR for abdominal aortic aneurysm with type 2 endoleak. 2. Abdominal pain of unknown origin. 3. Wide complex tachycardia. 4. Unspecified congestive heart failure. RECOMMENDATIONS: 1. Ms. Hurtado appears to have atrial fibrillation with rapid ventricular response and is currently on metoprolol therapy. Apparently before arriving to the emergency room, she was not given her medicines and went into atrial fibrillation while here. 2. We will continue her on her metoprolol therapy and she may need further therapy to control her heart rate. 3. She has unspecified congestive heart failure. We will check a 2-D echo to look at her overall left ventricular function, cardiac structure and possible valvulopathies. 4. She did present short of breath and this may be due to her atrial fibrillation. Currently, she is lying flat, in no acute distress and does not appear to be fluid overloaded and in acute decompensated heart failure. 5. She is currently on Eliquis 2.5 mg b.i.d. for her atrial fibrillation. I will also discuss with her son further about this as she fits criteria for being on 5 mg b.i.d. as her only risk factor is being over the age of 80. 6. She did have a wide complex tachycardia of 18 beats. In reviewing telemetry, the R-R interval does change throughout this and this is consistent with atrial fibrillation with rapid ventricular response and aberrancy. 7. No signs of acute coronary syndrome at this time, as troponins are negative and I believe that the wide complex tachycardia is not likely due to atrial fibrillation with rapid ventricular response. 8. Further recommendations will be made based on the hospital course. Thank you for allowing me to see Mindy Hurtado. If there are any questions, please do not hesitate to call. DO RONNIE Grossman/ , 11:03 PM , 11:15 PM
[2018-05-07 08:23] LABS: Baso % (Auto) 0.6 % (0.0-2.0); Eos % (Auto) 0.1 % (0.0-4.0); Hematocrit 40.9 % (35.0-46.0); Hemoglobin 14.3 gm/dL (11.6-15.3); Lymph % (Auto) 15.4 % (9.0-44.0); Mean Corpuscular HGB Conc 34.8 % (32.0-36.0); Mean Corpuscular Hemoglobin 29.8 pg (27.0-34.0); Mean Corpuscular Volume 85.5 fL (80.0-100.0); Mean Platelet Volume 8.2 fL (7.0-11.0); Mono # (Auto) 0.3 th/mm3 (0.0-0.9); Mono % (Auto) 4.3 % (0.0-8.0); Neut # (Auto) 5.2 th/mm3 (1.8-7.7); Neut % (Auto) 79.6 % (16.0-70.0); Platelet Count 234 th/mm3 (150-450); Red Blood Count 4.79 mil/mm3 (4.00-5.30); Red Cell Distribution Width 16.2 % (11.6-17.2); White Blood Count 6.6 th/mm3 (4.0-11.0)
[2018-05-07 08:45] LABS: Calcium 9.2 mg/dL (8.5-10.1); Carbon Dioxide 32.7 meq/L (21.0-32.0); Potassium 3.9 meq/L (3.5-5.1)
[2018-05-07] MEDS: Gabapentin 100 MG Capsule PO SCH (09:43)
[2018-05-07] MEDS: Metoprolol Tartrate 50 MG Tablet PO SCH ×2 (09:43→20:37)
[2018-05-07] MEDS: predniSONE 20 MG Tablet PO SCH ×2 (09:44→20:38)
[2018-05-07] MEDS: Senna/Docusate Sodium 8.6/50 MG Tablet PO SCH ×2 (09:45→20:38)
[2018-05-07] MEDS: Furosemide 40 MG Tablet PO SCH (09:45)
[2018-05-07] MEDS: Lisinopril 20 MG Tablet PO SCH ×2 (09:45→20:37)
--- NOTE | 2018-05-07 10:25 | P.PNVS ---
Subjective Subjective/Hospital Course: tolerating diet denies abdominal pain Objective Vital Signs / I&O: Vital Signs 05/06/18 11:31 05/06/18 12:18 05/06/18 16:01 Temperature 98.4 F Pulse Rate 117 H 101 H 104 H Respiratory Rate 20 Blood Pressure 102/70 Pulse Oximetry 96 05/06/18 16:17 05/06/18 19:27 05/06/18 20:00 Temperature 98.1 F 97.6 F Pulse Rate 118 H 98 H Respiratory Rate 20 22 Blood Pressure 114/72 101/78 Pulse Oximetry 92 L 95 93 L 05/06/18 22:00 05/06/18 23:00 05/06/18 23:17 Temperature 97.6 F Pulse Rate 109 H 123 H 72 Respiratory Rate 16 Blood Pressure 125/83 Pulse Oximetry 94 L 05/07/18 00:00 05/07/18 01:00 05/07/18 02:00 Temperature Pulse Rate 108 H 100 H 104 H Respiratory Rate Blood Pressure Pulse Oximetry 05/07/18 03:00 05/07/18 03:08 05/07/18 04:00 Temperature 98.0 F Pulse Rate 101 H 92 H 108 H Respiratory Rate 18 18 Blood Pressure 124/93 H Pulse Oximetry 97 05/07/18 05:00 05/07/18 06:00 Temperature Pulse Rate 104 H 107 H Respiratory Rate Blood Pressure Pulse Oximetry Intake & Output 05/06/18 05/07/18 05/07/18 18:59 06:59 18:59 Intake Total 720 / 720 Output Total 375 / 375 Balance 345 / 345 Weight 71.8 kg Intake: Oral 720 / 720 Output: Urine 375 / 375 Other: # Voids 1 Physical Exam: abdomen is soft NT ND Laboratory Results - last 24 hr 05/07/18 05/07/18 07:35 07:35 WBC 6.6 RBC 4.79 Hgb 14.3 Hct 40.9 MCV 85.5 MCH 29.8 MCHC 34.8 RDW 16.2 Plt Count 234 MPV 8.2 Neut % (Auto) 79.6 H Lymph % (Auto) 15.4 [place] % (Auto) 4.3 Eos % (Auto) 0.1 Baso % (Auto) 0.6 Neut # (Auto) 5.2 Lymph # (Auto) 1.0 [place] # (Auto) 0.3 Eos # (Auto) 0.0 Baso # (Auto) 0.0 WBC Differential . Differential Comment Auto diff final Sodium 137 Potassium 3.9 Chloride 98 Carbon Dioxide 32.7 H Anion Gap 6 BUN 18 Creatinine 0.81 Estimated GFR 67 L Random Glucose 140 H Calcium 9.2 Impressions Chest X-Ray 05/05/18 16:18 CONCLUSION: Head CT 05/05/18 16:18 CONCLUSION: 1. No acute findings. Mild chronic white matter ischemic changes. . Abdomen/Pelvis CT 05/05/18 19:33 CONCLUSION: 1. Status post endovascular repair of a large abdominal aortic aneurysm with possible small endoleak inferiorly within the aneurysm sac. 2. Otherwise no acute findings within the abdomen and pelvis. No bowel obstruction, free fluid or free air. 3. Small to moderate right pleural effusion with right basilar and mild left basilar airspace disease. Cardiomegaly. Assessment and Plan - Assessment (1) Endoleak post endovascular aneurysm repair Code(s): T82.330A - Leakage of aortic (bifurcation) graft (replacement), initial encounter Status: Acute - Plan Patient was more open for discission this am She knows about her endoleak and it has been followed by her primary surgeon in [place] I will continue with conservative management and routine surveillance I will schedule her for an office visit in 1 month with a CTA abdomen and pelvis [phone] (1) Endoleak post endovascular aneurysm repair Qualifiers: Encounter type: initial encounter Qualified Code(s): T82.330A - Leakage of aortic (bifurcation) graft (replacement), initial encounter
--- NOTE | 2018-05-07 12:20 | P.PNIM ---
Subjective Interval history: Assumed care on 05/07/18. patient still c/o shortness of breath. says every time nothing is found, she checks out ok. Physical Exam Vital signs: Last Vital Signs Temp 98.3 F 05/07/18 08:00 Pulse 92 H 05/07/18 11:37 Resp 14 05/07/18 11:37 BP 121/76 05/07/18 08:00 Pulse Ox 96 05/07/18 11:37 Intake & Output 05/05/18 05/06/18 05/07/18 05/08/18 06:59 06:59 06:59 06:59 Intake Total 720 / 720 Output Total 375 / 375 Balance 345 / 345 Weight 72.575 kg 71.8 kg Narrative: GENERAL: elderly woman, not in distress. HEENT:not pale,anicteric NECK: no JVD CARDIOVASCULAR: Regular rate and rhythm without murmurs, gallops, or rubs. RESPIRATORY: Clear to auscultation. Breath sounds equal bilaterally. No wheezes , rales, or rhonchi. GASTROINTESTINAL: Abdomen soft, non-tender, nondistended. Normal active bowel sounds MUSCULOSKELETAL: Extremities without clubbing, cyanosis, or edema. NEURO: Alert & Oriented x4 to person, place, time, situation. Moves all ext x4 Urinary Catheter Management Straight: Cath placed during this visit: yes, but has since been removed by the nurse Insertion date: 05/05/18 Insertion time: 17:20 Removal date: 05/05/18 Removal time: 17:24 Results Labs CBC & Chem 7: 05/07/18 07:35 05/07/18 07:35 Assessment and Plan (1) Endoleak post endovascular aneurysm repair: Code(s): T82.330A - Leakage of aortic (bifurcation) graft (replacement), initial encounter Status: Acute Plan 87-year-old white female with a history of COPD with 2.5 L of oxygen dependence , questionable history of congestive heart failure presents with one week history of increasing progressive shortness of breath and productive cough along with abdominal pain. Acute on chronic COPD exacerbation with underlying upper respiratory infection- Continue nebs ,steroids, wean oxygen as tolerated. H/o congestive heart failure-patient does not appear volume overloaded clinically, switch to usual dose of PO lasix. Follow 2 D ECHO. Atrial fibrillation w RVR-rates better controlled after being resumed on Metoprolol. Continue Eliquis for anticoagulation. Had a wide complex tachy which was determined to be Afib w abherancy. appreciate cardiology recs. 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 Vascular surgery does not feel this is etiology of her abdominal pain. Currently she does not complain of active abdominal pain. appreciate vascular surg recs, follow up as outpatient in 1 month. DVT prophylaxis Eliquis Physical therapy consultation Progress Note: Quality VTE Deep Vein Thrombosis/Pulmonary Embolism Present on Admission: No _ (1) Endoleak post endovascular aneurysm repair Qualifiers: Encounter type: initial encounter Qualified Code(s): T82.330A - Leakage of aortic (bifurcation) graft (replacement), initial encounter
--- NOTE | 2018-05-07 12:41 | P.PNCA ---
Subjective Interval history: No events overnight Appears more awake, somewhat conversive No chest pain/SOB Telemetry with rates better controlled Had one 5 beat run of wide complex tachycardia Appears to have changes in R-R, consistent with Afib with aberrancy Medications and Allergies Active Medications: Active Medications Acetaminophen (Tylenol) 650 mg PO Q4H PRN PRN Reason: Temp > 100.4 Al Hydroxide/Mg Hydroxide (Milk Of Magnesia Liq) 30 ml PO Q12H PRN PRN Reason: Mild Constipation Albuterol (Duoneb Neb (Joy)) 1 ampul NEB Q8HR ALT NEB [facility] Last Admin: 05/07/18 11:35 Dose: 1 ampul Albuterol (Duoneb Neb (Prn)) 1 ampul NEB Q2HR NEB PRN PRN Reason: SHORTNESS OF BREATH Apixaban (Eliquis) 2.5 mg PO BID [facility] Last Admin: 05/07/18 09:44 Dose: 2.5 mg Aspirin (Aspirin Chew) 81 mg PO DAILY [facility] Last Admin: 05/07/18 09:44 Dose: 81 mg Atorvastatin Calcium (Lipitor) 10 mg PO DAILY [facility] Last Admin: 05/07/18 09:44 Dose: 10 mg Bisacodyl (Dulcolax Supp) 10 mg RECTAL DAILY PRN PRN Reason: SEVERE CONSITIPATION Furosemide (Lasix) 40 mg PO DAILY [facility] Last Admin: 05/07/18 09:45 Dose: 40 mg Gabapentin (Neurontin) 200 mg PO DAILY [facility] Last Admin: 05/07/18 09:43 Dose: 200 mg Lactulose (Lactulose Liq) 30 ml PO DAILY PRN PRN Reason: SEVERE CONSITIPATION Lisinopril (Prinivil) 20 mg PO BID [facility] Last Admin: 05/07/18 09:45 Dose: 20 mg Lorazepam (Ativan Inj) 1 mg IV.PUSH Q4H PRN PRN Reason: AGITATION Metoprolol Tartrate (Lopressor) 50 mg PO BID [facility] Last Admin: 05/07/18 09:43 Dose: 50 mg Ondansetron HCl (Zofran Inj) 4 mg IV.PUSH Q6H PRN PRN Reason: NAUSEA OR VOMITING Pantoprazole Sodium (Protonix) 40 mg PO DAILY [facility] Last Admin: 05/07/18 09:44 Dose: 40 mg Paroxetine HCl (Paxil) 20 mg PO DAILY [facility] Last Admin: 05/07/18 09:45 Dose: 20 mg Potassium Chloride (K-Dur) 20 meq PO BID [facility] Last Admin: 05/07/18 09:44 Dose: 20 meq Prednisone (Deltasone) 20 mg PO BID [facility] Last Admin: 05/07/18 09:44 Dose: 20 mg Senna/Docusate Sodium (Janene-Colace) 1 tab PO BID [facility] Last Admin: 05/07/18 09:45 Dose: 1 tab Sennosides (Senokot) 17.2 mg PO Q12H PRN PRN Reason: Moderate Constipation Sodium Chloride (Ns Flush) 2 ml IV.FLUSH BID [facility] Last Admin: 05/07/18 09:45 Dose: 2 ml Sodium Chloride (Ns Flush) 2 ml IV.FLUSH PRN PRN PRN Reason: FLUSH AFTER USING IV ACCESS Last Admin: 05/06/18 17:25 Dose: 2 ml Allergies Allergy/AdvReac Type Severity Reaction Status Date / Time Penicillins Allergy Anaphylaxis Verified 05/05/18 16:13 procaine [From Novocain] Allergy Itching Verified 05/05/18 16:13 Home Medications Medication Instructions Recorded Confirmed Type apixaban [Eliquis] 2.5 mg PO BID 05/05/18 05/05/18 History aspirin 81 mg PO DAILY 05/05/18 05/05/18 History atorvastatin 10 mg PO DAILY 05/05/18 05/05/18 History furosemide 40 mg PO DAILY 05/05/18 05/05/18 History gabapentin 200 mg PO DAILY 05/05/18 05/05/18 History metoprolol tartrate 50 mg PO BID 05/05/18 05/05/18 History pantoprazole 40 mg PO DAILY 05/05/18 05/05/18 History paroxetine HCl 20 mg PO DAILY 05/05/18 05/05/18 History potassium chloride 10 meq PO BID 05/05/18 05/05/18 History quinapril 20 mg PO BID 05/05/18 05/05/18 History Physical Exam Vital signs: Vital Signs 05/06/18 16:01 05/06/18 16:17 05/06/18 19:27 Temperature 98.1 F Pulse Rate 104 H 118 H Respiratory Rate 20 Blood Pressure 114/72 Pulse Oximetry 92 L 95 05/06/18 20:00 05/06/18 22:00 05/06/18 23:00 Temperature 97.6 F Pulse Rate 98 H 109 H 123 H Respiratory Rate 22 Blood Pressure 101/78 Pulse Oximetry 93 L 05/06/18 23:17 05/07/18 00:00 05/07/18 01:00 Temperature 97.6 F Pulse Rate 72 108 H 100 H Respiratory Rate 16 Blood Pressure 125/83 Pulse Oximetry 94 L 05/07/18 02:00 05/07/18 03:00 05/07/18 03:08 Temperature Pulse Rate 104 H 101 H 92 H Respiratory Rate 18 Blood Pressure Pulse Oximetry 05/07/18 04:00 05/07/18 05:00 05/07/18 06:00 Temperature 98.0 F Pulse Rate 108 H 104 H 107 H Respiratory Rate 18 Blood Pressure 124/93 H Pulse Oximetry 97 05/07/18 08:00 05/07/18 11:37 Temperature 98.3 F Pulse Rate 106 H 92 H Respiratory Rate 18 14 Blood Pressure 121/76 Pulse Oximetry 96 96 Intake & Output 05/06/18 05/07/18 05/07/18 18:59 06:59 18:59 Intake Total 720 / 720 Output Total 375 / 375 Balance 345 / 345 Weight 71.8 kg Intake: Oral 720 / 720 Output: Urine 375 / 375 Other: # Voids 1 Narrative: GENERAL: elderly woman, not in distress. HEENT:not pale,anicteric NECK: no JVD CARDIOVASCULAR: Irregularly irregular, without murmurs, gallops, or rubs. RESPIRATORY: Clear to auscultation. Breath sounds equal bilaterally. No wheezes , rales, or rhonchi. GASTROINTESTINAL: Abdomen soft, non-tender, nondistended. Normal active bowel sounds MUSCULOSKELETAL: Extremities without clubbing, cyanosis, or edema. NEURO: Alert & Oriented x4 to person, place, time, situation. Moves all ext x4 - Urinary Catheter Management Straight Cath placed during this visit: yes, but has since been removed by the nurse Reason for continuing: Not indwelling catheter Insertion date: 05/05/18 Insertion time: 17:20 Removal date: 05/05/18 Removal time: 17:24 Results 05/07/18 07:35 05/07/18 07:35 Cardiac Enzymes 12/30/18 12/30/18 12/31/18 Range/Units 16:39 16:39 00:44 AST 29 (15-37) U/L Troponin I Less than 0.02 L Less than 0.02 L (0.02-0.05) ng/mL B-Natriuretic Peptide 905 H (0-100) pg/mL 05/06/18 Range/Units 03:34 AST 26 (15-37) U/L Troponin I Less than 0.02 L (0.02-0.05) ng/mL B-Natriuretic Peptide (0-100) pg/mL Coagulation 05/05/18 Range/Units 16:39 B-Natriuretic Peptide 905 H (0-100) pg/mL CBC 05/05/18 05/06/18 05/07/18 Range/Units 16:39 03:34 07:35 WBC 8.1 8.9 6.6 (4.0-11.0) th/mm3 RBC 4.72 4.81 4.79 (4.00-5.30) mil/mm3 Hgb 13.7 13.7 14.3 (11.6-15.3) gm/dL Hct 40.7 41.7 40.9 (35.0-46.0) % Plt Count 226 213 234 (150-450) th/mm3 Neut # (Auto) 6.1 5.9 5.2 (1.8-7.7) th/mm3 Lymph # (Auto) 1.3 2.1 1.0 (1.0-4.8) th/mm3 [place] # (Auto) 0.6 0.7 0.3 (0.0-0.9) th/mm3 Eos # (Auto) 0.1 0.2 0.0 (0.0-0.4) th/mm3 Baso # (Auto) 0.1 0.1 0.0 (0.0-0.2) th/mm3 Comprehensive Metabolic Panel 05/05/18 05/06/18 05/07/18 Range/Units 16:39 03:34 07:35 Sodium 142 141 137 (136-145) meq/L Potassium 3.4 L 3.6 3.9 (3.5-5.1) meq/L Chloride 101 100 98 (98-107) meq/L Carbon Dioxide 32.3 H 35.8 H 32.7 H (21.0-32.0) meq/L BUN 16 15 18 (7-18) mg/dL Creatinine 1.04 H 0.91 0.81 (0.50-1.00) mg/dL Calcium 8.7 9.0 9.2 (8.5-10.1) mg/dL AST 29 26 (15-37) U/L ALT 35 30 (10-53) U/L Alkaline Phosphatase 96 94 (45-117) U/L Total Protein 6.1 L 6.0 L (6.4-8.2) g/dL Albumin 3.2 L 3.1 L (3.4-5.0) g/dL Intake and Output 05/06/18 05/07/18 05/07/18 22:59 06:59 14:59 Intake Total 720 / 720 Output Total 375 / 375 Balance 345 / 345 Intake: Oral 720 / 720 Output: Urine 375 / 375 Other: # Voids 1 Weight 71.8 kg - Imaging and Cardiology Imaging: Impressions Chest X-Ray 05/05/18 16:18 CONCLUSION: Head CT 05/05/18 16:18 CONCLUSION: 1. No acute findings. Mild chronic white matter ischemic changes. . Abdomen/Pelvis CT 05/05/18 19:33 CONCLUSION: 1. Status post endovascular repair of a large abdominal aortic aneurysm with possible small endoleak inferiorly within the aneurysm sac. 2. Otherwise no acute findings within the abdomen and pelvis. No bowel obstruction, free fluid or free air. 3. Small to moderate right pleural effusion with right basilar and mild left basilar airspace disease. Cardiomegaly. Assessment and Plan - Assessment (1) Wide-complex tachycardia Code(s): I47.2 - Ventricular tachycardia Status: Acute (2) Atrial fibrillation with rapid ventricular response Code(s): I48.91 - Unspecified atrial fibrillation Status: Acute (3) CHF (congestive heart failure) Code(s): I50.9 - Heart failure, unspecified Status: Acute (4) Endoleak post endovascular aneurysm repair Code(s): T82.330A - Leakage of aortic (bifurcation) graft (replacement), initial encounter Status: Acute (5) Anxiety and depression Code(s): F41.9 - Anxiety disorder, unspecified; F32.9 - Major depressive disorder, single episode, unspecified Status: Acute - Plan 1. Atrial fibrillation with rapid ventricular response with a history of atrial fibrillation. Rates better controlled, still with some elevated rates Will attempt to add low dose Cardizem to help with rates Will plan to continue on Eliquis 2.5mg BID for now Spoke to her son, apparently she's had problems with bleeding in the past so dose was lowered to 2.5mg Will get the records in the outpatient setting and reassess dosing at that time 2. Previous EVAR for abdominal aortic aneurysm with type 2 endoleak. Followed by Vascular Surgery 3. Abdominal pain of unknown origin. 4. Wide complex tachycardia. R-R interval change, consistent with Afib with aberrancy 5. Unspecified congestive heart failure. Echo pending (3) CHF (congestive heart failure) Qualifiers: Heart failure type: other Qualified Code(s): I50.9 - Heart failure, unspecified (4) Endoleak post endovascular aneurysm repair Qualifiers: Encounter type: initial encounter Qualified Code(s): T82.330A - Leakage of aortic (bifurcation) graft (replacement), initial encounter
[2018-05-07] MEDS: dilTIAZem 30 MG Tablet PO SCH ×3 (14:02→20:37)
--- NOTE | 2018-05-07 15:23 | ECHRPT ---
Indication: CARDIOMYOPATHY CONCLUSIONS The left ventricular systolic function is moderately reduced with an estimated ejection fraction in the range of 40-45%. There is global left ventricular dysfunction. Mild mitral valve regurgitation. There is moderate tricuspid valve regurgitation. BP: / HR: Rhythm: Atrial fibrillation MEASUREMENTS (Male / Female) Normal Values Technical Quality:Fair 2D ECHO LV Diastolic Diameter PLAX 6.0 cm 4.2 - 5.9 / 3.9 - 5.3 cm LV Systolic Diameter PLAX 4.8 cm IVS Diastolic Thickness 1.0 cm 0.6 - 1.0 / 0.6 - 0.9 cm LVPW Diastolic Thickness 1.0 cm 0.6 - 1.0 / 0.6 - 0.9 cm LV Relative Wall Thickness 0.3 RV Internal Dim ED PLAX 3.2 cm LVOT Diameter 1.9 cm Aortic Root Diameter 3.1 cm LA Systolic Diameter LX 4.0 cm 3.0 - 4.0 / 2.7 - 3.8 cm LV Ejection Fraction MOD 4C 41.7 % LV Ejection Fraction 4C AL 43.8 % M-MODE AV Cusp Separation MM 1.7 cm DOPPLER AV Peak Velocity 130.0 cm/s AV Peak Gradient 6.8 mmHg LVOT Peak Velocity 99.2 cm/s LVOT Peak Gradient 3.9 mmHg AV Area Cont Eq pk 2.2 cm MR Peak Velocity 443.0 cm/s MR Peak Gradient 78.5 mmHg Mitral E Point Velocity 108.0 cm/s LV E' Lateral Velocity 8.7 cm/s Mitral E to LV E' Lateral Ratio 12.4 LV E' Septal Velocity 6.0 cm/s Mitral E to LV E' Septal Ratio 17.9 TR Peak Velocity 281.0 cm/s TR Peak Gradient 31.6 mmHg Right Atrial Pressure 10.0 mmHg Pulmonary Artery Systolic Pressu 41.6 mmHg Right Ventricular Systolic Press 41.6 mmHg PV Peak Velocity 62.7 cm/s PV Peak Gradient 1.6 mmHg FINDINGS LEFT VENTRICLE Normal left ventricular size. Wall thickness is normal. The left ventricular systolic function is moderately reduced with an estimated ejection fraction in the range of 40-45%. There is global left ventricular dysfunction. RIGHT VENTRICLE Normal right ventricular size and systolic function. LEFT ATRIUM The left atrial size is mildly dilated. RIGHT ATRIUM The right atrial size is moderately dilated. ATRIAL SEPTUM Normal atrial septal thickness without atrial level shunting by limited color doppler interrogation. AORTA The aortic root and proximal ascending aorta are normal in size on limited imaging. MITRAL VALVE Calcification of both mitral valve leaflets. Moderate mitral annular calcification. No mitral valve stenosis. Mild mitral valve regurgitation. AORTIC VALVE Diffuse calcification of the aortic valve. No aortic valve regurgitation. No aortic valve stenosis. TRICUSPID VALVE Structurally normal tricuspid valve. There is moderate tricuspid valve regurgitation. The estimated pulmonary arterial pressure is 42mmHg. PULMONARY VALVE No pulmonary valve regurgitation or stenosis. VESSELS The inferior vena cava is normal in size. PERICARDIUM No pericardial effusion. Deon Loredo DO (Electronically Signed) Final Date:07 May 2018 15:22
[2018-05-08] MEDS: Metoprolol Tartrate 50 MG Tablet PO SCH ×2 (09:52→21:29)
[2018-05-08] MEDS: dilTIAZem 30 MG Tablet PO SCH ×4 (09:53→21:28)
[2018-05-08] MEDS: Gabapentin 100 MG Capsule PO SCH (09:53)
[2018-05-08] MEDS: Senna/Docusate Sodium 8.6/50 MG Tablet PO SCH ×2 (09:54→21:28)
[2018-05-08] MEDS: Lisinopril 20 MG Tablet PO SCH ×2 (09:54→21:29)
[2018-05-08] MEDS: predniSONE 20 MG Tablet PO SCH ×2 (09:54→21:29)
[2018-05-08] MEDS: Furosemide 40 MG Tablet PO SCH (09:54)
--- NOTE | 2018-05-08 14:27 | P.PNIM ---
Subjective Interval history: patient says she feels discouraged, feels like she is a burden to others. Asked whether she is depressed, she says being here makes her depressed. I asked her if I should consult psychiatry for her, she declined. Not had a bowel movement for 3 days. Physical Exam Vital signs: Last Vital Signs Temp 98.1 F 05/08/18 11:53 Pulse 86 05/08/18 11:53 Resp 16 05/08/18 11:53 BP 124/79 05/08/18 11:53 Pulse Ox 98 05/08/18 11:53 Intake & Output 05/06/18 05/07/18 05/08/18 05/09/18 06:59 06:59 06:59 06:59 Intake Total 720 / 720 980 / 980 Output Total 375 / 375 350 / 350 Balance 345 / 345 630 / 630 Weight 72.575 kg 71.8 kg Narrative: GENERAL: elderly woman, not in distress. HEENT:not pale,anicteric NECK: no JVD CARDIOVASCULAR: Regular rate and rhythm without murmurs, gallops, or rubs. RESPIRATORY: Clear to auscultation. Breath sounds equal bilaterally. No wheezes , rales, or rhonchi. GASTROINTESTINAL: Abdomen soft, non-tender, nondistended. Normal active bowel sounds MUSCULOSKELETAL: Extremities without clubbing, cyanosis, or edema. NEURO: Alert & Oriented x4 to person, place, time, situation. Moves all ext x4 Urinary Catheter Management Straight: Cath placed during this visit: yes, but has since been removed by the nurse Insertion date: 05/05/18 Insertion time: 17:20 Removal date: 05/05/18 Removal time: 17:24 Results Labs CBC & Chem 7: 05/07/18 07:35 05/07/18 07:35 Assessment and Plan (1) Wide-complex tachycardia: Code(s): I47.2 - Ventricular tachycardia Status: Acute (2) Atrial fibrillation with rapid ventricular response: Code(s): I48.91 - Unspecified atrial fibrillation Status: Acute (3) CHF (congestive heart failure): Code(s): I50.9 - Heart failure, unspecified Status: Acute (4) Endoleak post endovascular aneurysm repair: Code(s): T82.330A - Leakage of aortic (bifurcation) graft (replacement), initial encounter Status: Acute (5) Anxiety and depression: Code(s): F41.9 - Anxiety disorder, unspecified; F32.9 - Major depressive disorder, single episode, unspecified Status: Acute Plan 87-year-old white female with a history of COPD with 2.5 L of oxygen dependence , questionable history of congestive heart failure presents with one week history of increasing progressive shortness of breath and productive cough along with abdominal pain. Acute on chronic COPD exacerbation with underlying upper respiratory infection- breathing is improving. Continue nebs ,steroids, wean oxygen as tolerated. H/o congestive heart failure-patient does not appear volume overloaded clinically, switch to usual dose of PO lasix. Follow 2 D ECHO. Atrial fibrillation w RVR-Had a wide complex tachy which was determined to be Afib w aberrancy. appreciate cardiology recs.rates better controlled after being resumed on Metoprolol, and PO Cardizem started. Continue Eliquis for anticoagulation. 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 Vascular surgery does not feel this is etiology of her abdominal pain. Currently she does not complain of active abdominal pain. appreciate vascular surg recs, follow up as outpatient in 1 month. Depression-patient states feels depressed, no energy. she also feels like she is a burden to her family. I asked patient if I can consult psychiatry for her but she does not want that. She is on Paroxetine 20mg daily. Constipation: she is on prn medication,will ask nurse to give DVT prophylaxis Eliquis PT/OT recommend rehab. Patient can be transferred to med surg Progress Note: Quality VTE Deep Vein Thrombosis/Pulmonary Embolism Present on Admission: No _ (1) Endoleak post endovascular aneurysm repair Qualifiers: Encounter type: initial encounter Qualified Code(s): T82.330A - Leakage of aortic (bifurcation) graft (replacement), initial encounter (2) CHF (congestive heart failure) Qualifiers: Heart failure chronicity: Heart failure type: other Qualified Code(s): I50.9 - Heart failure, unspecified
--- NOTE | 2018-05-08 14:57 | P.PNCA ---
Subjective Interval history: No events overnight Heart rates better controlled Medications and Allergies Active Medications: Active Medications Acetaminophen (Tylenol) 650 mg PO Q4H PRN PRN Reason: Temp > 100.4 Al Hydroxide/Mg Hydroxide (Milk Of Magnesia Liq) 30 ml PO Q12H PRN PRN Reason: Mild Constipation Albuterol (Duoneb Neb (Joy)) 1 ampul NEB Q8HR ALT NEB [facility] Last Admin: 05/08/18 11:07 Dose: 1 ampul Albuterol (Duoneb Neb (Prn)) 1 ampul NEB Q2HR NEB PRN PRN Reason: SHORTNESS OF BREATH Apixaban (Eliquis) 2.5 mg PO BID [facility] Last Admin: 05/08/18 09:54 Dose: 2.5 mg Aspirin (Aspirin Chew) 81 mg PO DAILY [facility] Last Admin: 05/08/18 09:53 Dose: 81 mg Atorvastatin Calcium (Lipitor) 10 mg PO DAILY [facility] Last Admin: 05/08/18 09:52 Dose: 10 mg Bisacodyl (Dulcolax Supp) 10 mg RECTAL DAILY PRN PRN Reason: SEVERE CONSITIPATION Diltiazem HCl (Cardizem) 30 mg PO QID [facility] Last Admin: 05/08/18 13:55 Dose: 30 mg Furosemide (Lasix) 40 mg PO DAILY [facility] Last Admin: 05/08/18 09:54 Dose: 40 mg Gabapentin (Neurontin) 200 mg PO DAILY [facility] Last Admin: 05/08/18 09:53 Dose: 200 mg Lactulose (Lactulose Liq) 30 ml PO DAILY PRN PRN Reason: SEVERE CONSITIPATION Lisinopril (Prinivil) 20 mg PO BID [facility] Last Admin: 05/08/18 09:54 Dose: 20 mg Lorazepam (Ativan Inj) 1 mg IV.PUSH Q4H PRN PRN Reason: AGITATION Metoprolol Tartrate (Lopressor) 50 mg PO BID [facility] Last Admin: 05/08/18 09:52 Dose: 50 mg Ondansetron HCl (Zofran Inj) 4 mg IV.PUSH Q6H PRN PRN Reason: NAUSEA OR VOMITING Pantoprazole Sodium (Protonix) 40 mg PO DAILY [facility] Last Admin: 05/08/18 09:54 Dose: 40 mg Paroxetine HCl (Paxil) 20 mg PO DAILY [facility] Last Admin: 05/08/18 09:53 Dose: 20 mg Potassium Chloride (K-Dur) 20 meq PO BID [facility] Last Admin: 05/08/18 09:53 Dose: 20 meq Prednisone (Deltasone) 20 mg PO BID [facility] Last Admin: 05/08/18 09:54 Dose: 20 mg Senna/Docusate Sodium (Janene-Colace) 1 tab PO BID [facility] Last Admin: 05/08/18 09:54 Dose: 1 tab Sennosides (Senokot) 17.2 mg PO Q12H PRN PRN Reason: Moderate Constipation Sodium Chloride (Ns Flush) 2 ml IV.FLUSH BID [facility] Last Admin: 05/08/18 09:55 Dose: 2 ml Sodium Chloride (Ns Flush) 2 ml IV.FLUSH PRN PRN PRN Reason: FLUSH AFTER USING IV ACCESS Last Admin: 05/06/18 17:25 Dose: 2 ml Allergies Allergy/AdvReac Type Severity Reaction Status Date / Time Penicillins Allergy Anaphylaxis Verified 05/05/18 16:13 procaine [From Novocain] Allergy Itching Verified 05/05/18 16:13 Home Medications Medication Instructions Recorded Confirmed Type apixaban [Eliquis] 2.5 mg PO BID 05/05/18 05/05/18 History aspirin 81 mg PO DAILY 05/05/18 05/05/18 History atorvastatin 10 mg PO DAILY 05/05/18 05/05/18 History furosemide 40 mg PO DAILY 05/05/18 05/05/18 History gabapentin 200 mg PO DAILY 05/05/18 05/05/18 History metoprolol tartrate 50 mg PO BID 05/05/18 05/05/18 History pantoprazole 40 mg PO DAILY 05/05/18 05/05/18 History paroxetine HCl 20 mg PO DAILY 05/05/18 05/05/18 History potassium chloride 10 meq PO BID 05/05/18 05/05/18 History quinapril 20 mg PO BID 05/05/18 05/05/18 History Physical Exam Vital signs: Vital Signs 05/07/18 15:00 05/07/18 16:00 05/07/18 17:00 Temperature 98.2 F Pulse Rate 116 H 116 H 108 H Respiratory Rate 18 Blood Pressure 142/67 H Pulse Oximetry 96 05/07/18 18:00 05/07/18 19:00 05/07/18 20:00 Temperature 98.0 F Pulse Rate 94 H 94 H 85 Respiratory Rate 18 Blood Pressure 126/70 Pulse Oximetry 96 05/07/18 20:11 05/07/18 20:21 05/07/18 21:00 Temperature Pulse Rate 90 82 92 H Respiratory Rate 18 Blood Pressure Pulse Oximetry 96 05/07/18 22:00 05/07/18 23:00 05/08/18 00:00 Temperature 97.5 F L Pulse Rate 90 87 87 Respiratory Rate 18 Blood Pressure 95/65 L Pulse Oximetry 95 05/08/18 01:00 05/08/18 02:00 05/08/18 03:00 Temperature Pulse Rate 90 94 H 89 Respiratory Rate Blood Pressure Pulse Oximetry 05/08/18 04:00 05/08/18 04:12 05/08/18 05:00 Temperature 97.4 F L Pulse Rate 98 H 78 84 Respiratory Rate 18 Blood Pressure 90/46 L Pulse Oximetry 98 05/08/18 06:00 05/08/18 07:00 05/08/18 08:00 Temperature Pulse Rate 90 92 H 88 Respiratory Rate Blood Pressure Pulse Oximetry 98 05/08/18 09:00 05/08/18 09:41 05/08/18 10:00 Temperature 97.6 F Pulse Rate 88 88 86 Respiratory Rate 16 Blood Pressure 115/67 Pulse Oximetry 98 05/08/18 11:00 05/08/18 11:08 05/08/18 11:53 Temperature 98.1 F Pulse Rate 92 H 91 H 86 Respiratory Rate 16 16 Blood Pressure 124/79 Pulse Oximetry 95 98 Intake & Output 05/07/18 05/08/18 05/08/18 18:59 06:59 18:59 Intake Total 740 / 740 240 / 240 Output Total 350 / 350 Balance 740 / 740 -110 / -110 Intake: Oral 740 / 740 240 / 240 Output: Urine 350 / 350 Other: # Voids 4 2 Date of Last Bowel Movement 05/07/18 05/07/18 05/07/18 # Bowel Movements 1 Narrative: GENERAL: elderly woman, not in distress. HEENT:not pale,anicteric NECK: no JVD CARDIOVASCULAR: Irregularly irregular without murmurs, gallops, or rubs. RESPIRATORY: Clear to auscultation. Breath sounds equal bilaterally. No wheezes , rales, or rhonchi. GASTROINTESTINAL: Abdomen soft, non-tender, nondistended. Normal active bowel sounds MUSCULOSKELETAL: Extremities without clubbing, cyanosis, or edema. NEURO: Alert & Oriented x4 to person, place, time, situation. Moves all ext x4 - Urinary Catheter Management Straight Cath placed during this visit: yes, but has since been removed by the nurse Reason for continuing: Not indwelling catheter Insertion date: 05/05/18 Insertion time: 17:20 Removal date: 05/05/18 Removal time: 17:24 Results 05/07/18 07:35 05/07/18 07:35 CBC 05/07/18 Range/Units 07:35 WBC 6.6 (4.0-11.0) th/mm3 RBC 4.79 (4.00-5.30) mil/mm3 Hgb 14.3 (11.6-15.3) gm/dL Hct 40.9 (35.0-46.0) % Plt Count 234 (150-450) th/mm3 Neut # (Auto) 5.2 (1.8-7.7) th/mm3 Lymph # (Auto) 1.0 (1.0-4.8) th/mm3 [place] # (Auto) 0.3 (0.0-0.9) th/mm3 Eos # (Auto) 0.0 (0.0-0.4) th/mm3 Baso # (Auto) 0.0 (0.0-0.2) th/mm3 Comprehensive Metabolic Panel 05/07/18 Range/Units 07:35 Sodium 137 (136-145) meq/L Potassium 3.9 (3.5-5.1) meq/L Chloride 98 (98-107) meq/L Carbon Dioxide 32.7 H (21.0-32.0) meq/L BUN 18 (7-18) mg/dL Creatinine 0.81 (0.50-1.00) mg/dL Calcium 9.2 (8.5-10.1) mg/dL Intake and Output 05/07/18 05/08/18 05/08/18 22:59 06:59 14:59 Intake Total 740 / 740 240 / 240 Output Total 350 / 350 Balance 740 / 740 -110 / -110 Intake: Oral 740 / 740 240 / 240 Output: Urine 350 / 350 Other: # Voids 4 2 Date of Last Bowel Movement 05/07/18 05/07/18 05/07/18 # Bowel Movements 1 Assessment and Plan - Assessment (1) Wide-complex tachycardia Code(s): I47.2 - Ventricular tachycardia Status: Acute (2) Atrial fibrillation with rapid ventricular response Code(s): I48.91 - Unspecified atrial fibrillation Status: Acute (3) CHF (congestive heart failure) Code(s): I50.9 - Heart failure, unspecified Status: Acute (4) Endoleak post endovascular aneurysm repair Code(s): T82.330A - Leakage of aortic (bifurcation) graft (replacement), initial encounter Status: Acute (5) Anxiety and depression Code(s): F41.9 - Anxiety disorder, unspecified; F32.9 - Major depressive disorder, single episode, unspecified Status: Acute - Plan 1. Atrial fibrillation with rapid ventricular response with a history of atrial fibrillation. Rates better controlled Con't Metoprolol/Cardizem Will plan to continue on Eliquis 2.5mg BID for now Spoke to her son, apparently she's had problems with bleeding in the past so dose was lowered to 2.5mg Will get the records in the outpatient setting and reassess dosing at that time 2. Previous EVAR for abdominal aortic aneurysm with type 2 endoleak. Followed by Vascular Surgery 3. Abdominal pain of unknown origin. 4. Wide complex tachycardia. R-R interval change, consistent with Afib with aberrancy 5. Unspecified congestive heart failure. Moderate LV dysfunction 6. Depression Most likely cause of over tiredness Consider psych evaluation, son also mentioned this when speaking with him (3) CHF (congestive heart failure) Qualifiers: Heart failure type: other Qualified Code(s): I50.9 - Heart failure, unspecified (4) Endoleak post endovascular aneurysm repair Qualifiers: Encounter type: initial encounter Qualified Code(s): T82.330A - Leakage of aortic (bifurcation) graft (replacement), initial encounter
[2018-05-09] MEDS: Gabapentin 100 MG Capsule PO SCH (08:54)
[2018-05-09] MEDS: Senna/Docusate Sodium 8.6/50 MG Tablet PO SCH ×2 (08:54→21:06)
[2018-05-09] MEDS: dilTIAZem 30 MG Tablet PO SCH ×4 (08:55→21:06)
[2018-05-09] MEDS: predniSONE 20 MG Tablet PO SCH ×2 (08:55→21:06)
[2018-05-09] MEDS: Lisinopril 20 MG Tablet PO SCH ×2 (08:55→21:06)
[2018-05-09] MEDS: Furosemide 40 MG Tablet PO SCH (08:56)
[2018-05-09] MEDS: Metoprolol Tartrate 50 MG Tablet PO SCH ×2 (08:56→21:06)
--- NOTE | 2018-05-09 16:25 | P.CONPSY ---
Provisional Diagnosis Admission Date: May 06, 2018 15:36 Winters I.: Adjustment disorder with mixed anxiety and depressed mood, history of depression and anxiety History of Present Illness Service: Medicne Primary Care Provider: UNKNOWN Chief Complaint: Abdominal pain History of Present Illness: The patient is an 87-year-old woman, domiciled in [facility], , mother of 1 son, with a psychiatric history of depression and anxiety, but no previous psychiatric hospitalizations, no previous suicidal attempts, she has been stable in Paxil 20 mg, medical history of A-fib, COPD and CHF who was brought to the ER from [facility] for complaints of SOB and abdominal pain. Stating that she was having pain for a long time. Initially agitated and poor historian. On arrival, BP 125/58, HR 66, O2 sat 98% on RA, Afebrile. While in ER had episode of A-fib w/ RVR, HR 120's s/p Metoprolol w/ improvement , has not taken home meds today. CBC unremarkable. Chemistry essentially unremarkable. Troponin negative. BNP 905. UA negative. CT Head no acute findings. CXR with cardiomegaly and small pleural effusions. CT Abdomen/ Pelvis endovascular repair of large abdominal aortic aneurysm with possible small endoleak. Dr. Hawthorne consulted, will eval in am, no emergent surgical intervention indicated. Consulted to psychiatry to address symptoms of anxiety and depression. Chart reviewed. On my psychiatric evaluation I find a patient that is initially quite irritable, oppositional and resistant. Initially did not wanted to communicate with me, and stating that she was not feeling well she was not breathing well. With redirection patient was able to start talking to me slowly. She says that she is tired to be in the hospital. She says that she feels very overwhelmed and frustrated with her medical deterioration multiple psychiatric admission in the last 4 months. She says that she moved to [place] about a year ago from [place] to have a more independent life, she bought a house in [place] and had no being able to enjoy it. She reports that the most difficult thing for her is not to be independent, having to ask for everything in the hospital, not being able to even choose when you want to eat or go to the bathroom. She relates that she always has been a person on control of herself. She says that she is having a very hard time sleeping at night. Shortness of breath definitely leads to anxiety. She says that she had an episode of depression many years ago, but she has been quite stable on Paxil 20 mg. She feels that she is going down the heel. She denies helplessness, denies hopelessness, denies suicidal and homicidal ideation. The patient is logical, coherent, relevant and she is quite oriented x3. There is no attention deficit, there is no fluctuation of consciousness, there is no agitation or aggressive behavior. PPhx: depression and anxiety, but no previous psychiatric hospitalizations, no previous suicidal attempts, she has been stable in Paxil 20 mg, medical history of A-fib, COPD and CHF PMhx: COPD, HTN, CHF Substance hx: She denies the use of illegal drugs and alcohol Family hx: Her father was in alcohol Social hx: The patient was born and raised in [place], she moved to [facility] about a year ago to reunion with her only 1 son, , retired , highest level of education is high risk. Review of Systems All other systems reviewed negative except as stated in HPI Constitutional: Reports lack of energy Respiratory: Reports cough, Reports shortness of breath with activity Psychiatric: Reports anxiety, Reports depression, Reports irritability, Reports mood swings PMFSH - History History Provided By: Patient - Medical History Medical History: Medical History (Last Reviewed 05/09/18 @ 09:24 by Pearl Cheney) Anxiety CHF (congestive heart failure) COPD (chronic obstructive pulmonary disease) Depression - Tobacco History Second Hand Smoke Exposure: No Smoking Status: Former smoker Tobacco Type: Cigarettes - Alcohol History How Often Do You Have a Drink Containing Alcohol: Never - Substance Use History Substance History: No History of Abuse - Travel History Recent Travel in the [facility] Within the Last 8 Weeks: No Recent Travel Out of the Country Within the Last 8 Weeks: No - Immunization History Tetanus Immunization: Unsure Medications and Allergies Active Medications: Active Medications Acetaminophen (Tylenol) 650 mg PO Q4H PRN PRN Reason: Temp > 100.4 Al Hydroxide/Mg Hydroxide (Milk Of Magnesia Liq) 30 ml PO Q12H PRN PRN Reason: Mild Constipation Last Admin: 05/08/18 21:28 Dose: 30 ml Albuterol (Duoneb Neb (Joy)) 1 ampul NEB Q8HR ALT NEB [facility] Last Admin: 05/09/18 11:04 Dose: 1 ampul Albuterol (Duoneb Neb (Prn)) 1 ampul NEB Q2HR NEB PRN PRN Reason: SHORTNESS OF BREATH Apixaban (Eliquis) 2.5 mg PO BID [facility] Last Admin: 05/09/18 08:55 Dose: 2.5 mg Aspirin (Aspirin Chew) 81 mg PO DAILY [facility] Last Admin: 05/09/18 08:56 Dose: 81 mg Atorvastatin Calcium (Lipitor) 10 mg PO DAILY [facility] Last Admin: 05/09/18 08:56 Dose: 10 mg Bisacodyl (Dulcolax Supp) 10 mg RECTAL DAILY PRN PRN Reason: SEVERE CONSITIPATION Diltiazem HCl (Cardizem) 30 mg PO QID [facility] Last Admin: 05/09/18 13:06 Dose: 30 mg Furosemide (Lasix) 40 mg PO DAILY [facility] Last Admin: 05/09/18 08:56 Dose: 40 mg Gabapentin (Neurontin) 200 mg PO DAILY [facility] Last Admin: 05/09/18 08:54 Dose: 200 mg Lactulose (Lactulose Liq) 30 ml PO DAILY PRN PRN Reason: SEVERE CONSITIPATION Lisinopril (Prinivil) 20 mg PO BID [facility] Last Admin: 05/09/18 08:55 Dose: 20 mg Lorazepam (Ativan Inj) 1 mg IV.PUSH Q4H PRN PRN Reason: AGITATION Metoprolol Tartrate (Lopressor) 50 mg PO BID [facility] Last Admin: 05/09/18 08:56 Dose: 50 mg Ondansetron HCl (Zofran Inj) 4 mg IV.PUSH Q6H PRN PRN Reason: NAUSEA OR VOMITING Pantoprazole Sodium (Protonix) 40 mg PO DAILY [facility] Last Admin: 05/09/18 08:56 Dose: 40 mg Paroxetine HCl (Paxil) 30 mg PO DAILY [facility] Potassium Chloride (K-Dur) 20 meq PO BID [facility] Last Admin: 05/09/18 08:55 Dose: 20 meq Prednisone (Deltasone) 20 mg PO BID [facility] Last Admin: 05/09/18 08:55 Dose: 20 mg Senna/Docusate Sodium (Janene-Colace) 1 tab PO BID [facility] Last Admin: 05/09/18 08:54 Dose: 1 tab Sennosides (Senokot) 17.2 mg PO Q12H PRN PRN Reason: Moderate Constipation Sodium Chloride (Ns Flush) 2 ml IV.FLUSH BID [facility] Last Admin: 05/09/18 08:57 Dose: 2 ml Sodium Chloride (Ns Flush) 2 ml IV.FLUSH PRN PRN PRN Reason: FLUSH AFTER USING IV ACCESS Last Admin: 05/06/18 17:25 Dose: 2 ml Allergies Allergy/AdvReac Type Severity Reaction Status Date / Time Penicillins Allergy Anaphylaxis Verified 05/05/18 16:13 procaine [From Novocain] Allergy Itching Verified 05/05/18 16:13 Home Medications Medication Instructions Recorded Confirmed Type apixaban [Eliquis] 2.5 mg PO BID 05/05/18 05/05/18 History aspirin 81 mg PO DAILY 05/05/18 05/05/18 History atorvastatin 10 mg PO DAILY 05/05/18 05/05/18 History furosemide 40 mg PO DAILY 05/05/18 05/05/18 History gabapentin 200 mg PO DAILY 05/05/18 05/05/18 History metoprolol tartrate 50 mg PO BID 05/05/18 05/05/18 History pantoprazole 40 mg PO DAILY 05/05/18 05/05/18 History paroxetine HCl 20 mg PO DAILY 05/05/18 05/05/18 History potassium chloride 10 meq PO BID 05/05/18 05/05/18 History quinapril 20 mg PO BID 05/05/18 05/05/18 History Exam Vital signs: Vital Signs 05/08/18 16:37 05/08/18 16:39 05/08/18 17:00 Temperature 97.4 F L Pulse Rate 93 H 88 Respiratory Rate 16 Blood Pressure 101/74 Pulse Oximetry 88 L 93 L 05/08/18 18:00 05/08/18 19:00 05/08/18 20:00 Temperature 98.0 F Pulse Rate 94 H 79 84 Respiratory Rate 18 16 Blood Pressure 120/63 Pulse Oximetry 99 05/08/18 21:00 05/08/18 22:00 05/08/18 23:00 Temperature Pulse Rate 78 80 70 Respiratory Rate Blood Pressure Pulse Oximetry 05/09/18 00:00 05/09/18 01:00 05/09/18 02:00 Temperature 98.2 F Pulse Rate 80 71 74 Respiratory Rate 16 Blood Pressure 115/73 Pulse Oximetry 98 05/09/18 03:00 05/09/18 03:17 05/09/18 04:00 Temperature 98.6 F Pulse Rate 70 68 74 Respiratory Rate 16 Blood Pressure 92/59 L Pulse Oximetry 99 05/09/18 04:23 05/09/18 05:00 05/09/18 06:00 Temperature Pulse Rate 98 H 78 77 Respiratory Rate 15 Blood Pressure Pulse Oximetry 05/09/18 08:00 05/09/18 11:04 Temperature 98.0 F Pulse Rate 103 H 83 Respiratory Rate 18 16 Blood Pressure 123/75 Pulse Oximetry 97 98 Intake & Output 05/08/18 05/09/18 05/09/18 18:59 06:59 18:59 Intake Total 650 / 650 240 / 240 Output Total 550 / 550 600 / 600 Balance 100 / 100 -360 / -360 Weight 71.8 kg Intake: Oral 650 / 650 240 / 240 Output: Urine 550 / 550 600 / 600 Other: Date of Last Bowel Movement 05/07/18 05/09/18 # Bowel Movements 0 Narrative: No psychomotor agitation or retardation, no tremors, no EPS, prominent shortness of breath, no catatonic since Mental Status Examination Appearance: Appropriate Consciousness: Alert Orientation: x4 Motor Activity: Normal gait Speech: Unremarkable Language: Adequate Fund of Knowledge: Adequate Attention and Concentration: Adequate Memory: Unremarkable Mood: Sad Affect: Irritable Thought Content: Appropriate Hallucination Type: None Delusion Type: None Suicidal Ideation: No Suicidal Plan: No Suicidal Intention: No Homicidal Ideation: No Homicidal Plan: No Homicidal Intention: No Insight: Fair Judgment: Impulsive Assessment and Plan - Assessment (1) Adjustment disorder with depressed mood Code(s): F43.21 - Adjustment disorder with depressed mood Status: Acute - Plan Plan: On psychiatric evaluation today the patient initially irritable, resistant and oppositional, but sensitive to verbal redirection. Patient reports sense of frustration, increased anxiety, sadness, feeling overwhelmed, with difficulty sleeping at night in the context of medical decompensation, multiple recent medical admissions, loss of control sensation. The patient denies hopelessness , she denies helplessness, she denies worthlessness, she denies anhedonia, denies suicidal and homicidal ideation, denies visual and auditory hallucinations, but reports feeling very annoyed and quite catastrophic with her medical situation. She is fully oriented x3 at the moment, no attention deficit, no fluctuation of consciousness. There is no agitation or aggressive behavior. The patient is logical, linear, coherent. She has a psychiatric history of depression, anxiety, has been in Paxil 20 mg prescribed by PCP. No previous psychiatric hospitalizations, no pre-suicide attempts. Patient does not meet criteria for involuntary psychiatric admission. I will increase Paxil to 30 mg for depression Can increase gabapentin to 300 mg 3 times daily to help with anxiety Will avoid benzodiazepines due to shortness of breathe Can order trazodone 100 mg at bedtime as needed insomnia Extensive support, motivation, psychoeducation provided With follow-up Justification for Continued Inpatient Stay: No admission is indicated
--- NOTE | 2018-05-09 17:08 | P.PNIM ---
Subjective Interval history: feels better today,breathing improving. still feels weak. was able to work with PT today. Physical Exam Vital signs: Last Vital Signs Temp 98.0 F 05/09/18 08:00 Pulse 83 05/09/18 11:04 Resp 16 05/09/18 11:04 BP 123/75 05/09/18 08:00 Pulse Ox 98 05/09/18 11:04 Intake & Output 05/07/18 05/08/18 05/09/18 05/10/18 06:59 06:59 06:59 06:59 Intake Total 720 / 720 980 / 980 890 / 890 Output Total 375 / 375 350 / 350 1150 / 1150 Balance 345 / 345 630 / 630 -260 / -260 Weight 71.8 kg 71.8 kg Narrative: GENERAL: elderly woman, not in distress. HEENT:not pale,anicteric NECK: no JVD CARDIOVASCULAR: Regular rate and rhythm without murmurs, gallops, or rubs. RESPIRATORY: Clear to auscultation. Breath sounds equal bilaterally. No wheezes , rales, or rhonchi. GASTROINTESTINAL: Abdomen soft, non-tender, nondistended. Normal active bowel sounds MUSCULOSKELETAL: Extremities without clubbing, cyanosis, or edema. NEURO: Alert & Oriented x4 to person, place, time, situation. Moves all ext x4 Urinary Catheter Management Straight: Cath placed during this visit: yes, but has since been removed by the nurse Insertion date: 05/05/18 Insertion time: 17:20 Removal date: 05/05/18 Removal time: 17:24 Results Labs CBC & Chem 7: 05/07/18 07:35 05/07/18 07:35 Assessment and Plan (1) Wide-complex tachycardia: Code(s): I47.2 - Ventricular tachycardia Status: Acute (2) Atrial fibrillation with rapid ventricular response: Code(s): I48.91 - Unspecified atrial fibrillation Status: Acute (3) CHF (congestive heart failure): Code(s): I50.9 - Heart failure, unspecified Status: Acute (4) Endoleak post endovascular aneurysm repair: Code(s): T82.330A - Leakage of aortic (bifurcation) graft (replacement), initial encounter Status: Acute (5) Anxiety and depression: Code(s): F41.9 - Anxiety disorder, unspecified; F32.9 - Major depressive disorder, single episode, unspecified Status: Acute Plan 87-year-old white female with a history of COPD with 2.5 L of oxygen dependence , questionable history of congestive heart failure presents with one week history of increasing progressive shortness of breath and productive cough along with abdominal pain. Acute on chronic COPD exacerbation with underlying upper respiratory infection- breathing is improving. Continue nebs ,steroids, wean oxygen as tolerated. H/o congestive heart failure-patient does not appear volume overloaded clinically, switch to usual dose of PO lasix. Follow 2 D ECHO. Atrial fibrillation w RVR-Had a wide complex tachy which was determined to be Afib w aberrancy. appreciate cardiology recs.rates better controlled after being resumed on Metoprolol, and PO Cardizem started. Continue Eliquis for anticoagulation. 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 Vascular surgery does not feel this is etiology of her abdominal pain. Currently she does not complain of active abdominal pain. appreciate vascular surg recs, follow up as outpatient in 1 month. Depression- psych consulted, appreciate recs Increased Paxil to 30mg daily. Constipation: she is on prn medication,will ask nurse to give DVT prophylaxis Eliquis PT/OT recommend rehab. Patient can be transferred to med surg Progress Note: Quality VTE Deep Vein Thrombosis/Pulmonary Embolism Present on Admission: No _ (1) Endoleak post endovascular aneurysm repair Qualifiers: Encounter type: initial encounter Qualified Code(s): T82.330A - Leakage of aortic (bifurcation) graft (replacement), initial encounter (2) CHF (congestive heart failure) Qualifiers: Heart failure chronicity: Heart failure type: other Qualified Code(s): I50.9 - Heart failure, unspecified
[2018-05-09] MEDS ORDERED: traZODone 50 MG Tablet PO PRN (21:00)
--- NOTE | 2018-05-09 23:01 | P.PNCA ---
Subjective Interval history: Appears stable Heart rates controlled Appears depressed Medications and Allergies Active Medications: Active Medications Acetaminophen (Tylenol) 650 mg PO Q4H PRN PRN Reason: Temp > 100.4 Al Hydroxide/Mg Hydroxide (Milk Of Magnesia Liq) 30 ml PO Q12H PRN PRN Reason: Mild Constipation Last Admin: 05/08/18 21:28 Dose: 30 ml Albuterol (Duoneb Neb (Joy)) 1 ampul NEB Q8HR ALT NEB [facility] Last Admin: 05/09/18 19:39 Dose: 1 ampul Albuterol (Duoneb Neb (Prn)) 1 ampul NEB Q2HR NEB PRN PRN Reason: SHORTNESS OF BREATH Apixaban (Eliquis) 2.5 mg PO BID [facility] Last Admin: 05/09/18 21:05 Dose: 2.5 mg Aspirin (Aspirin Chew) 81 mg PO DAILY [facility] Last Admin: 05/09/18 08:56 Dose: 81 mg Atorvastatin Calcium (Lipitor) 10 mg PO DAILY [facility] Last Admin: 05/09/18 08:56 Dose: 10 mg Bisacodyl (Dulcolax Supp) 10 mg RECTAL DAILY PRN PRN Reason: SEVERE CONSITIPATION Diltiazem HCl (Cardizem) 30 mg PO QID [facility] Last Admin: 05/09/18 21:06 Dose: 30 mg Furosemide (Lasix) 40 mg PO DAILY [facility] Last Admin: 05/09/18 08:56 Dose: 40 mg Gabapentin (Neurontin) 200 mg PO DAILY [facility] Last Admin: 05/09/18 08:54 Dose: 200 mg Lactulose (Lactulose Liq) 30 ml PO DAILY PRN PRN Reason: SEVERE CONSITIPATION Lisinopril (Prinivil) 20 mg PO BID [facility] Last Admin: 05/09/18 21:06 Dose: 20 mg Metoprolol Tartrate (Lopressor) 50 mg PO BID [facility] Last Admin: 05/09/18 21:06 Dose: 50 mg Ondansetron HCl (Zofran Inj) 4 mg IV.PUSH Q6H PRN PRN Reason: NAUSEA OR VOMITING Pantoprazole Sodium (Protonix) 40 mg PO DAILY [facility] Last Admin: 05/09/18 08:56 Dose: 40 mg Paroxetine HCl (Paxil) 30 mg PO DAILY [facility] Potassium Chloride (K-Dur) 20 meq PO BID [facility] Last Admin: 05/09/18 21:06 Dose: 20 meq Prednisone (Deltasone) 20 mg PO BID [facility] Last Admin: 05/09/18 21:06 Dose: 20 mg Senna/Docusate Sodium (Janene-Colace) 1 tab PO BID [facility] Last Admin: 05/09/18 21:06 Dose: 1 tab Sennosides (Senokot) 17.2 mg PO Q12H PRN PRN Reason: Moderate Constipation Sodium Chloride (Ns Flush) 2 ml IV.FLUSH BID [facility] Last Admin: 05/09/18 21:06 Dose: 2 ml Sodium Chloride (Ns Flush) 2 ml IV.FLUSH PRN PRN PRN Reason: FLUSH AFTER USING IV ACCESS Last Admin: 05/06/18 17:25 Dose: 2 ml Trazodone HCl (Desyrel) 50 mg PO HS PRN PRN Reason: insomnia Allergies Allergy/AdvReac Type Severity Reaction Status Date / Time Penicillins Allergy Anaphylaxis Verified 05/05/18 16:13 procaine [From Novocain] Allergy Itching Verified 05/05/18 16:13 Home Medications Medication Instructions Recorded Confirmed Type apixaban [Eliquis] 2.5 mg PO BID 05/05/18 05/05/18 History aspirin 81 mg PO DAILY 05/05/18 05/05/18 History atorvastatin 10 mg PO DAILY 05/05/18 05/05/18 History furosemide 40 mg PO DAILY 05/05/18 05/05/18 History gabapentin 200 mg PO DAILY 05/05/18 05/05/18 History metoprolol tartrate 50 mg PO BID 05/05/18 05/05/18 History pantoprazole 40 mg PO DAILY 05/05/18 05/05/18 History paroxetine HCl 20 mg PO DAILY 05/05/18 05/05/18 History potassium chloride 10 meq PO BID 05/05/18 05/05/18 History quinapril 20 mg PO BID 05/05/18 05/05/18 History Physical Exam Vital signs: Vital Signs 05/08/18 23:00 05/09/18 00:00 05/09/18 01:00 Temperature 98.2 F Pulse Rate 70 80 71 Respiratory Rate 16 Blood Pressure 115/73 Pulse Oximetry 98 05/09/18 02:00 05/09/18 03:00 05/09/18 03:17 Temperature 98.6 F Pulse Rate 74 70 68 Respiratory Rate 16 Blood Pressure 92/59 L Pulse Oximetry 99 05/09/18 04:00 05/09/18 04:23 05/09/18 05:00 Temperature Pulse Rate 74 98 H 78 Respiratory Rate 15 Blood Pressure Pulse Oximetry 05/09/18 06:00 05/09/18 07:00 05/09/18 08:00 Temperature 98.0 F Pulse Rate 77 77 88 Respiratory Rate 18 Blood Pressure 123/75 Pulse Oximetry 97 05/09/18 09:00 05/09/18 10:00 05/09/18 11:00 Temperature Pulse Rate 94 H 86 74 Respiratory Rate Blood Pressure Pulse Oximetry 05/09/18 11:04 05/09/18 12:00 05/09/18 13:00 Temperature 97.7 F Pulse Rate 83 74 74 Respiratory Rate 16 20 Blood Pressure 104/70 Pulse Oximetry 98 97 05/09/18 14:00 05/09/18 15:00 05/09/18 16:00 Temperature Pulse Rate 74 79 70 Respiratory Rate 20 Blood Pressure 105/56 L Pulse Oximetry 97 05/09/18 17:00 05/09/18 18:00 05/09/18 19:00 Temperature Pulse Rate 72 70 69 Respiratory Rate 20 Blood Pressure Pulse Oximetry 05/09/18 19:42 05/09/18 20:00 Temperature 97.9 F Pulse Rate 70 Respiratory Rate 16 Blood Pressure 100/63 Pulse Oximetry 96 98 Intake & Output 05/09/18 05/09/18 05/10/18 06:59 18:59 06:59 Intake Total 240 / 240 1000 / 1000 Output Total 600 / 600 400 / 400 Balance -360 / -360 1000 / 1000 -400 / -400 Weight 71.8 kg Intake: Oral 240 / 240 1000 / 1000 Output: Urine 600 / 600 400 / 400 Other: # Voids 6 Date of Last Bowel Movement 05/09/18 05/09/18 # Bowel Movements 1 Narrative: GENERAL: elderly woman, not in distress. HEENT:not pale,anicteric NECK: no JVD CARDIOVASCULAR: Irregularly irregular without murmurs, gallops, or rubs. RESPIRATORY: Clear to auscultation. Breath sounds equal bilaterally. No wheezes , rales, or rhonchi. GASTROINTESTINAL: Abdomen soft, non-tender, nondistended. Normal active bowel sounds MUSCULOSKELETAL: Extremities without clubbing, cyanosis, or edema. NEURO: Alert & Oriented x4 to person, place, time, situation. Moves all ext x4 - Urinary Catheter Management Straight Cath placed during this visit: yes, but has since been removed by the nurse Reason for continuing: Not indwelling catheter Insertion date: 05/05/18 Insertion time: 17:20 Removal date: 05/05/18 Removal time: 17:24 Results 05/07/18 07:35 05/07/18 07:35 Intake and Output 05/09/18 05/09/18 05/09/18 06:59 14:59 22:59 Intake Total 240 / 240 1000 / 1000 Output Total 400 / 400 400 / 400 Balance -160 / -160 600 / 600 Intake: Oral 240 / 240 1000 / 1000 Output: Urine 400 / 400 400 / 400 Other: # Voids 6 Date of Last Bowel Movement 05/09/18 05/09/18 # Bowel Movements 1 Weight 71.8 kg Assessment and Plan - Assessment (1) Wide-complex tachycardia Code(s): I47.2 - Ventricular tachycardia Status: Acute (2) Atrial fibrillation with rapid ventricular response Code(s): I48.91 - Unspecified atrial fibrillation Status: Acute (3) CHF (congestive heart failure) Code(s): I50.9 - Heart failure, unspecified Status: Acute (4) Endoleak post endovascular aneurysm repair Code(s): T82.330A - Leakage of aortic (bifurcation) graft (replacement), initial encounter Status: Acute (5) Anxiety and depression Code(s): F41.9 - Anxiety disorder, unspecified; F32.9 - Major depressive disorder, single episode, unspecified Status: Acute - Plan 1. Atrial fibrillation with rapid ventricular response with a history of atrial fibrillation. Rates better controlled Con't Metoprolol/Cardizem Will plan to continue on Eliquis 2.5mg BID for now Spoke to her son, apparently she's had problems with bleeding in the past so dose was lowered to 2.5mg Will get the records in the outpatient setting and reassess dosing at that time 2. Previous EVAR for abdominal aortic aneurysm with type 2 endoleak. Followed by Vascular Surgery 3. Abdominal pain of unknown origin. 4. Wide complex tachycardia. R-R interval change, consistent with Afib with aberrancy 5. Unspecified congestive heart failure. Moderate LV dysfunction 6. Depression Most likely cause of over tiredness Consider psych evaluation, son also mentioned this when speaking with him (3) CHF (congestive heart failure) Qualifiers: Heart failure type: other Qualified Code(s): I50.9 - Heart failure, unspecified (4) Endoleak post endovascular aneurysm repair Qualifiers: Encounter type: initial encounter Qualified Code(s): T82.330A - Leakage of aortic (bifurcation) graft (replacement), initial encounter
[2018-05-10] MEDS: Gabapentin 100 MG Capsule PO SCH (08:40)
[2018-05-10] MEDS: predniSONE 20 MG Tablet PO SCH ×2 (08:40→23:48)
[2018-05-10] MEDS: Lisinopril 20 MG Tablet PO SCH ×2 (08:41→23:45)
[2018-05-10] MEDS: Senna/Docusate Sodium 8.6/50 MG Tablet PO SCH ×2 (08:41→23:46)
[2018-05-10] MEDS: Furosemide 40 MG Tablet PO SCH (08:43)
[2018-05-10] MEDS: Metoprolol Tartrate 50 MG Tablet PO SCH ×2 (08:43→23:48)
[2018-05-10] MEDS: dilTIAZem 30 MG Tablet PO SCH ×4 (08:43→23:48)
--- NOTE | 2018-05-10 12:20 | P.PNCA ---
Subjective Interval history: No events overnight More tired today Medications and Allergies Active Medications: Active Medications Acetaminophen (Tylenol) 650 mg PO Q4H PRN PRN Reason: Temp > 100.4 Al Hydroxide/Mg Hydroxide (Milk Of Magnesia Liq) 30 ml PO Q12H PRN PRN Reason: Mild Constipation Last Admin: 05/08/18 21:28 Dose: 30 ml Albuterol (Duoneb Neb (Joy)) 1 ampul NEB Q8HR ALT NEB [facility] Last Admin: 05/10/18 11:15 Dose: 1 ampul Albuterol (Duoneb Neb (Prn)) 1 ampul NEB Q2HR NEB PRN PRN Reason: SHORTNESS OF BREATH Apixaban (Eliquis) 2.5 mg PO BID [facility] Last Admin: 05/10/18 08:40 Dose: 2.5 mg Aspirin (Aspirin Chew) 81 mg PO DAILY [facility] Last Admin: 05/10/18 08:43 Dose: 81 mg Atorvastatin Calcium (Lipitor) 10 mg PO DAILY [facility] Last Admin: 05/10/18 08:42 Dose: 10 mg Bisacodyl (Dulcolax Supp) 10 mg RECTAL DAILY PRN PRN Reason: SEVERE CONSITIPATION Diltiazem HCl (Cardizem) 30 mg PO QID [facility] Last Admin: 05/10/18 08:43 Dose: 30 mg Furosemide (Lasix) 40 mg PO DAILY [facility] Last Admin: 05/10/18 08:43 Dose: 40 mg Gabapentin (Neurontin) 200 mg PO DAILY [facility] Last Admin: 05/10/18 08:40 Dose: 200 mg Lactulose (Lactulose Liq) 30 ml PO DAILY PRN PRN Reason: SEVERE CONSITIPATION Lisinopril (Prinivil) 20 mg PO BID [facility] Last Admin: 05/10/18 08:41 Dose: 20 mg Metoprolol Tartrate (Lopressor) 50 mg PO BID [facility] Last Admin: 05/10/18 08:43 Dose: 50 mg Ondansetron HCl (Zofran Inj) 4 mg IV.PUSH Q6H PRN PRN Reason: NAUSEA OR VOMITING Pantoprazole Sodium (Protonix) 40 mg PO DAILY [facility] Last Admin: 05/10/18 08:42 Dose: 40 mg Paroxetine HCl (Paxil) 30 mg PO DAILY [facility] Last Admin: 05/10/18 08:41 Dose: 30 mg Potassium Chloride (K-Dur) 20 meq PO BID [facility] Last Admin: 05/10/18 08:42 Dose: 20 meq Prednisone (Deltasone) 20 mg PO BID [facility] Last Admin: 05/10/18 08:40 Dose: 20 mg Senna/Docusate Sodium (Janene-Colace) 1 tab PO BID [facility] Last Admin: 05/10/18 08:41 Dose: 1 tab Sennosides (Senokot) 17.2 mg PO Q12H PRN PRN Reason: Moderate Constipation Sodium Chloride (Ns Flush) 2 ml IV.FLUSH BID [facility] Last Admin: 05/10/18 08:44 Dose: 2 ml Sodium Chloride (Ns Flush) 2 ml IV.FLUSH PRN PRN PRN Reason: FLUSH AFTER USING IV ACCESS Last Admin: 05/06/18 17:25 Dose: 2 ml Trazodone HCl (Desyrel) 50 mg PO HS PRN PRN Reason: insomnia Allergies Allergy/AdvReac Type Severity Reaction Status Date / Time Penicillins Allergy Anaphylaxis Verified 05/05/18 16:13 procaine [From Novocain] Allergy Itching Verified 05/05/18 16:13 Home Medications Medication Instructions Recorded Confirmed Type apixaban [Eliquis] 2.5 mg PO BID 05/05/18 05/05/18 History aspirin 81 mg PO DAILY 05/05/18 05/05/18 History atorvastatin 10 mg PO DAILY 05/05/18 05/05/18 History furosemide 40 mg PO DAILY 05/05/18 05/05/18 History gabapentin 200 mg PO DAILY 05/05/18 05/05/18 History metoprolol tartrate 50 mg PO BID 05/05/18 05/05/18 History pantoprazole 40 mg PO DAILY 05/05/18 05/05/18 History paroxetine HCl 20 mg PO DAILY 05/05/18 05/05/18 History potassium chloride 10 meq PO BID 05/05/18 05/05/18 History quinapril 20 mg PO BID 05/05/18 05/05/18 History Physical Exam Vital signs: Vital Signs 05/09/18 13:00 05/09/18 14:00 05/09/18 15:00 Temperature Pulse Rate 74 74 79 Respiratory Rate Blood Pressure Pulse Oximetry 05/09/18 16:00 05/09/18 17:00 05/09/18 18:00 Temperature Pulse Rate 70 72 70 Respiratory Rate 20 Blood Pressure 105/56 L Pulse Oximetry 97 05/09/18 19:00 05/09/18 19:42 05/09/18 20:00 Temperature 97.9 F Pulse Rate 69 70 Respiratory Rate 20 16 Blood Pressure 100/63 Pulse Oximetry 96 98 05/09/18 23:00 05/09/18 23:05 05/10/18 03:00 Temperature 97.3 F L Pulse Rate 71 68 71 Respiratory Rate 18 Blood Pressure 96/63 L Pulse Oximetry 99 05/10/18 04:00 05/10/18 08:00 05/10/18 11:16 Temperature 97.6 F 97.5 F L Pulse Rate 59 L 85 74 Respiratory Rate 16 18 16 Blood Pressure 103/60 148/93 H Pulse Oximetry 99 98 97 Intake & Output 05/09/18 05/10/18 05/10/18 18:59 06:59 18:59 Intake Total 1000 / 1000 200 / 200 Output Total 1000 / 1000 Balance 1000 / 1000 -800 / -800 Weight 72.5 kg Intake: Oral 1000 / 1000 200 / 200 Output: Urine 1000 / 1000 Other: # Voids 6 Date of Last Bowel Movement 05/09/18 05/09/18 05/09/18 # Bowel Movements 1 1 Narrative: GENERAL: elderly woman, not in distress. HEENT:not pale,anicteric NECK: no JVD CARDIOVASCULAR: Irregularly irregular without murmurs, gallops, or rubs. RESPIRATORY: Clear to auscultation. Breath sounds equal bilaterally. No wheezes , rales, or rhonchi. GASTROINTESTINAL: Abdomen soft, non-tender, nondistended. Normal active bowel sounds MUSCULOSKELETAL: Extremities without clubbing, cyanosis, or edema. NEURO: Alert & Oriented x4 to person, place, time, situation. Moves all ext x4 - Urinary Catheter Management Straight Cath placed during this visit: yes, but has since been removed by the nurse Reason for continuing: Not indwelling catheter Insertion date: 05/05/18 Insertion time: 17:20 Removal date: 05/05/18 Removal time: 17:24 Results 05/07/18 07:35 05/07/18 07:35 Intake and Output 05/09/18 05/10/18 05/10/18 22:59 06:59 14:59 Intake Total 1000 / 1000 200 / 200 Output Total 400 / 400 600 / 600 Balance 600 / 600 -400 / -400 Intake: Oral 1000 / 1000 200 / 200 Output: Urine 400 / 400 600 / 600 Other: # Voids 6 Date of Last Bowel Movement 05/09/18 05/09/18 05/09/18 # Bowel Movements 1 1 Weight 72.5 kg Assessment and Plan - Assessment (1) Wide-complex tachycardia Code(s): I47.2 - Ventricular tachycardia Status: Acute (2) Atrial fibrillation with rapid ventricular response Code(s): I48.91 - Unspecified atrial fibrillation Status: Acute (3) CHF (congestive heart failure) Code(s): I50.9 - Heart failure, unspecified Status: Acute (4) Endoleak post endovascular aneurysm repair Code(s): T82.330A - Leakage of aortic (bifurcation) graft (replacement), initial encounter Status: Acute (5) Anxiety and depression Code(s): F41.9 - Anxiety disorder, unspecified; F32.9 - Major depressive disorder, single episode, unspecified Status: Acute - Plan 1. Atrial fibrillation with rapid ventricular response with a history of atrial fibrillation. Rates better controlled Con't Metoprolol/Cardizem Will plan to continue on Eliquis 2.5mg BID for now Spoke to her son, apparently she's had problems with bleeding in the past so dose was lowered to 2.5mg Will get the records in the outpatient setting and reassess dosing at that time 2. Previous EVAR for abdominal aortic aneurysm with type 2 endoleak. Followed by Vascular Surgery 3. Abdominal pain of unknown origin. 4. Wide complex tachycardia. R-R interval change, consistent with Afib with aberrancy 5. Unspecified congestive heart failure. Moderate LV dysfunction 6. Depression Most likely cause of over tiredness Psych seeing 7. If concerns over the weekend, please call the service for covering physician (3) CHF (congestive heart failure) Qualifiers: Heart failure type: other Qualified Code(s): I50.9 - Heart failure, unspecified (4) Endoleak post endovascular aneurysm repair Qualifiers: Encounter type: initial encounter Qualified Code(s): T82.330A - Leakage of aortic (bifurcation) graft (replacement), initial encounter
--- NOTE | 2018-05-10 15:57 | P.PNIM ---
Subjective Interval history: reports not moving bowel for 3 days. Physical Exam Vital signs: Last Vital Signs Temp 97.9 F 05/10/18 12:00 Pulse 95 H 05/10/18 15:23 Resp 16 05/10/18 15:23 BP 115/72 05/10/18 12:00 Pulse Ox 98 05/10/18 12:00 Intake & Output 05/08/18 05/09/18 05/10/18 05/11/18 06:59 06:59 06:59 06:59 Intake Total 980 / 980 890 / 890 1200 / 1200 Output Total 350 / 350 1150 / 1150 1000 / 1000 Balance 630 / 630 -260 / -260 200 / 200 Weight 71.8 kg 72.5 kg Narrative: GENERAL: elderly woman, not in distress. HEENT:not pale,anicteric NECK: no JVD CARDIOVASCULAR: Irregularly irregular without murmurs, gallops, or rubs. RESPIRATORY: Clear to auscultation. Breath sounds equal bilaterally. No wheezes , rales, or rhonchi. GASTROINTESTINAL: Abdomen soft, non-tender, nondistended. Normal active bowel sounds MUSCULOSKELETAL: Extremities without clubbing, cyanosis, or edema. NEURO: Alert & Oriented x4 to person, place, time, situation. Moves all ext x4 Urinary Catheter Management Straight: Cath placed during this visit: yes, but has since been removed by the nurse Insertion date: 05/05/18 Insertion time: 17:20 Removal date: 05/05/18 Removal time: 17:24 Results Labs CBC & Chem 7: 05/07/18 07:35 05/07/18 07:35 Assessment and Plan (1) Wide-complex tachycardia: Code(s): I47.2 - Ventricular tachycardia Status: Acute (2) Atrial fibrillation with rapid ventricular response: Code(s): I48.91 - Unspecified atrial fibrillation Status: Acute (3) CHF (congestive heart failure): Code(s): I50.9 - Heart failure, unspecified Status: Acute (4) Endoleak post endovascular aneurysm repair: Code(s): T82.330A - Leakage of aortic (bifurcation) graft (replacement), initial encounter Status: Acute (5) Anxiety and depression: Code(s): F41.9 - Anxiety disorder, unspecified; F32.9 - Major depressive disorder, single episode, unspecified Status: Acute Plan 87-year-old white female with a history of COPD with 2.5 L of oxygen dependence , questionable history of congestive heart failure presents with one week history of increasing progressive shortness of breath and productive cough along with abdominal pain. Acute on chronic COPD exacerbation with underlying upper respiratory infection- breathing has improved. Continue nebs, wean oxygen as tolerated.Prednisone discontinued. H/o congestive heart failure-patient does not appear volume overloaded clinically,continue PO lasix. 2 D ECHO-LVEF 40-45%,global LV dysfunction, moderate TR. Atrial fibrillation w RVR-Had a wide complex tachy which was determined to be Afib w aberrancy. appreciate cardiology recs.rates better controlled after being resumed on Metoprolol, and PO Cardizem started. Continue Eliquis for anticoagulation. HTN-BP was on lower side today, lisinopril on hold. 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 Vascular surgery does not feel this is etiology of her abdominal pain. Currently she does not complain of active abdominal pain. appreciate vascular surg recs, follow up as outpatient in 1 month. Depression- psych consulted, appreciate recs Increased Paxil to 30mg daily. Constipation: she is on prn medication,will ask nurse to give DVT prophylaxis Eliquis PT/OT recommend rehab--pending placement. Patient can be transferred to med surg Progress Note: Quality VTE Deep Vein Thrombosis/Pulmonary Embolism Present on Admission: No _ (1) Endoleak post endovascular aneurysm repair Qualifiers: Encounter type: initial encounter Qualified Code(s): T82.330A - Leakage of aortic (bifurcation) graft (replacement), initial encounter (2) CHF (congestive heart failure) Qualifiers: Heart failure chronicity: Heart failure type: other Qualified Code(s): I50.9 - Heart failure, unspecified
[2018-05-11] MEDS: dilTIAZem 30 MG Tablet PO SCH ×4 (09:32→20:59)
[2018-05-11] MEDS: Furosemide 40 MG Tablet PO SCH (09:32)
[2018-05-11] MEDS: Senna/Docusate Sodium 8.6/50 MG Tablet PO SCH ×2 (09:33→20:58)
[2018-05-11] MEDS: Gabapentin 100 MG Capsule PO SCH (09:33)
[2018-05-11] MEDS: Metoprolol Tartrate 50 MG Tablet PO SCH ×2 (09:33→20:58)
--- NOTE | 2018-05-11 15:19 | P.PNIM ---
Subjective Interval history: reports no bowel movements for 4 days. no nausea or vomiting. has some abdominal pain. Physical Exam Vital signs: Last Vital Signs Temp 98.2 F 05/11/18 12:08 Pulse 73 05/11/18 14:49 Resp 16 05/11/18 14:49 BP 120/73 05/11/18 12:08 Pulse Ox 97 05/11/18 08:22 Intake & Output 05/09/18 05/10/18 05/11/18 05/12/18 06:59 06:59 06:59 06:59 Intake Total 890 / 890 1200 / 1200 2430 / 2430 Output Total 1150 / 1150 1000 / 1000 2800 / 2800 Balance -260 / -260 200 / 200 -370 / -370 Weight 71.8 kg 72.5 kg 72.9 kg Narrative: GENERAL: elderly woman, not in distress. HEENT:not pale,anicteric NECK: no JVD CARDIOVASCULAR: Irregularly irregular without murmurs, gallops, or rubs. RESPIRATORY: Clear to auscultation. Breath sounds equal bilaterally. No wheezes , rales, or rhonchi. GASTROINTESTINAL: Abdomen soft, non-tender, nondistended. Normal active bowel sounds MUSCULOSKELETAL: Extremities without clubbing, cyanosis, or edema. NEURO: Alert & Oriented x4 to person, place, time, situation. Moves all ext x4 Urinary Catheter Management Straight: Cath placed during this visit: yes, but has since been removed by the nurse Insertion date: 05/05/18 Insertion time: 17:20 Removal date: 05/05/18 Removal time: 17:24 Results Labs CBC & Chem 7: 05/07/18 07:35 05/07/18 07:35 Assessment and Plan (1) Wide-complex tachycardia: Code(s): I47.2 - Ventricular tachycardia Status: Acute (2) Atrial fibrillation with rapid ventricular response: Code(s): I48.91 - Unspecified atrial fibrillation Status: Acute (3) CHF (congestive heart failure): Code(s): I50.9 - Heart failure, unspecified Status: Acute (4) Endoleak post endovascular aneurysm repair: Code(s): T82.330A - Leakage of aortic (bifurcation) graft (replacement), initial encounter Status: Acute (5) Anxiety and depression: Code(s): F41.9 - Anxiety disorder, unspecified; F32.9 - Major depressive disorder, single episode, unspecified Status: Acute Plan 87-year-old white female with a history of COPD with 2.5 L of oxygen dependence , questionable history of congestive heart failure presents with one week history of increasing progressive shortness of breath and productive cough along with abdominal pain. Acute on chronic COPD exacerbation with underlying upper respiratory infection- breathing has improved. Continue nebs, wean oxygen as tolerated.Prednisone discontinued. H/o congestive heart failure-patient does not appear volume overloaded clinically,continue PO lasix. 2 D ECHO-LVEF 40-45%,global LV dysfunction, moderate TR. Atrial fibrillation w RVR-Had a wide complex tachy which was determined to be Afib w aberrancy. appreciate cardiology recs.rates better controlled after being resumed on Metoprolol, and PO Cardizem started. Continue Eliquis for anticoagulation. HTN-BP was on lower side today, lisinopril on hold. 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 Vascular surgery does not feel this is etiology of her abdominal pain. Currently she does not complain of active abdominal pain. appreciate vascular surg recs, follow up as outpatient in 1 month. Depression- psych consulted, appreciate recs Increased Paxil to 30mg daily. Constipation: she is on prn medication,will ask nurse to give DVT prophylaxis Eliquis PT/OT recommend rehab--pending placement. Patient can be transferred to med surg Progress Note: Quality VTE Deep Vein Thrombosis/Pulmonary Embolism Present on Admission: No _ (1) Endoleak post endovascular aneurysm repair Qualifiers: Encounter type: initial encounter Qualified Code(s): T82.330A - Leakage of aortic (bifurcation) graft (replacement), initial encounter (2) CHF (congestive heart failure) Qualifiers: Heart failure chronicity: Heart failure type: other Qualified Code(s): I50.9 - Heart failure, unspecified
[2018-05-12] MEDS: Gabapentin 100 MG Capsule PO SCH (08:08)
[2018-05-12] MEDS: Metoprolol Tartrate 50 MG Tablet PO SCH ×2 (08:08→21:09)
[2018-05-12] MEDS: Furosemide 40 MG Tablet PO SCH (08:08)
[2018-05-12] MEDS: Senna/Docusate Sodium 8.6/50 MG Tablet PO SCH ×2 (08:09→21:09)
[2018-05-12] MEDS: dilTIAZem 30 MG Tablet PO SCH ×4 (08:09→21:08)
--- NOTE | 2018-05-12 15:55 | P.PNIM ---
Subjective Interval history: no new complaints. says her son does not love her, but she will do whatever he wants her to do. no abdominal pain today. she had a bowel movement this morning. Physical Exam Vital signs: Last Vital Signs Temp 98.1 F 05/12/18 12:00 Pulse 72 05/12/18 12:00 Resp 18 05/12/18 12:00 BP 117/63 05/12/18 12:00 Pulse Ox 94 L 05/12/18 12:00 Intake & Output 05/10/18 05/11/18 05/12/18 05/13/18 06:59 06:59 06:59 06:59 Intake Total 1200 / 1200 2430 / 2430 960 / 960 Output Total 1000 / 1000 2800 / 2800 1350 / 1350 Balance 200 / 200 -370 / -370 -390 / -390 Weight 72.5 kg 72.9 kg 72 kg Narrative: GENERAL: elderly woman, not in distress. HEENT:not pale,anicteric NECK: no JVD CARDIOVASCULAR: Irregularly irregular without murmurs, gallops, or rubs. RESPIRATORY: Clear to auscultation. Breath sounds equal bilaterally. No wheezes , rales, or rhonchi. GASTROINTESTINAL: Abdomen nondistended, soft, non-tender, . Normal active bowel sounds MUSCULOSKELETAL: Extremities without clubbing, cyanosis, or edema. NEURO: Alert & Oriented x4 to person, place, time, situation. Moves all ext x4 Urinary Catheter Management Straight: Cath placed during this visit: yes, but has since been removed by the nurse Insertion date: 05/05/18 Insertion time: 17:20 Removal date: 05/05/18 Removal time: 17:24 Results Labs CBC & Chem 7: 05/07/18 07:35 05/07/18 07:35 Assessment and Plan (1) Wide-complex tachycardia: Code(s): I47.2 - Ventricular tachycardia Status: Acute (2) Atrial fibrillation with rapid ventricular response: Code(s): I48.91 - Unspecified atrial fibrillation Status: Acute (3) CHF (congestive heart failure): Code(s): I50.9 - Heart failure, unspecified Status: Acute (4) Endoleak post endovascular aneurysm repair: Code(s): T82.330A - Leakage of aortic (bifurcation) graft (replacement), initial encounter Status: Acute (5) Anxiety and depression: Code(s): F41.9 - Anxiety disorder, unspecified; F32.9 - Major depressive disorder, single episode, unspecified Status: Acute Plan 87-year-old white female with a history of COPD with 2.5 L of oxygen dependence , questionable history of congestive heart failure presents with one week history of increasing progressive shortness of breath and productive cough along with abdominal pain. Acute on chronic COPD exacerbation with underlying upper respiratory infection- breathing has improved. Continue nebs, wean oxygen as tolerated.Prednisone discontinued--completed course. H/o congestive heart failure-patient does not appear volume overloaded clinically,continue PO lasix. 2 D ECHO-LVEF 40-45%,global LV dysfunction, moderate TR. Atrial fibrillation w RVR-Had a wide complex tachy which was determined to be Afib w aberrancy. appreciate cardiology recs.rates better controlled after being resumed on Metoprolol, and PO Cardizem started. Continue Eliquis for anticoagulation. HTN-BP was on lower side today, lisinopril on hold. 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 Vascular surgery does not feel this is etiology of her abdominal pain. Currently she does not complain of active abdominal pain. appreciate vascular surg recs, follow up as outpatient in 1 month. Depression- psych consulted, appreciate recs Increased Paxil to 30mg daily. did not increase gabapentin since patient had some somnolence. Constipation: improved, had bowel movement today, continue prn regimen. DVT prophylaxis Eliquis PT/OT recommend rehab--pending placement. Patient can be transferred to med surg DISPO--can be discharged to rehab whenever a bed becomes available. Progress Note: Quality VTE Deep Vein Thrombosis/Pulmonary Embolism Present on Admission: No _ (1) CHF (congestive heart failure) Qualifiers: Heart failure chronicity: Heart failure type: other Qualified Code(s): I50.9 - Heart failure, unspecified (2) Endoleak post endovascular aneurysm repair Qualifiers: Encounter type: initial encounter Qualified Code(s): T82.330A - Leakage of aortic (bifurcation) graft (replacement), initial encounter
--- NOTE | 2018-05-12 21:18 | P.PNIM ---
Subjective Interval history: not seen Physical Exam Vital signs: Last Vital Signs Temp 98.0 F 05/12/18 16:00 Pulse 80 05/12/18 16:00 Resp 18 05/12/18 16:00 BP 107/71 05/12/18 16:00 Pulse Ox 97 05/12/18 16:00 Intake & Output 05/10/18 05/11/18 05/12/18 05/13/18 06:59 06:59 06:59 06:59 Intake Total 1200 / 1200 2430 / 2430 960 / 960 720 / 720 Output Total 1000 / 1000 2800 / 2800 1350 / 1350 1100 / 1100 Balance 200 / 200 -370 / -370 -390 / -390 -380 / -380 Weight 72.5 kg 72.9 kg 72 kg Narrative: GENERAL: elderly woman, not in distress. HEENT:not pale,anicteric NECK: no JVD CARDIOVASCULAR: Irregularly irregular without murmurs, gallops, or rubs. RESPIRATORY: Clear to auscultation. Breath sounds equal bilaterally. No wheezes , rales, or rhonchi. GASTROINTESTINAL: Abdomen nondistended, soft, non-tender, . Normal active bowel sounds MUSCULOSKELETAL: Extremities without clubbing, cyanosis, or edema. NEURO: Alert & Oriented x4 to person, place, time, situation. Moves all ext x4 Urinary Catheter Management Straight: Cath placed during this visit: yes, but has since been removed by the nurse Insertion date: 05/05/18 Insertion time: 17:20 Removal date: 05/05/18 Removal time: 17:24 Results Labs CBC & Chem 7: 05/07/18 07:35 05/07/18 07:35 Labs: ITS Impressions Chest X-Ray 05/05/18 16:18 CONCLUSION: Head CT 05/05/18 16:18 CONCLUSION: 1. No acute findings. Mild chronic white matter ischemic changes. . Abdomen/Pelvis CT 05/05/18 19:33 CONCLUSION: 1. Status post endovascular repair of a large abdominal aortic aneurysm with possible small endoleak inferiorly within the aneurysm sac. 2. Otherwise no acute findings within the abdomen and pelvis. No bowel obstruction, free fluid or free air. 3. Small to moderate right pleural effusion with right basilar and mild left basilar airspace disease. Cardiomegaly. Assessment and Plan (1) Wide-complex tachycardia: Code(s): I47.2 - Ventricular tachycardia Status: Acute (2) Atrial fibrillation with rapid ventricular response: Code(s): I48.91 - Unspecified atrial fibrillation Status: Acute (3) CHF (congestive heart failure): Code(s): I50.9 - Heart failure, unspecified Status: Acute (4) Endoleak post endovascular aneurysm repair: Code(s): T82.330A - Leakage of aortic (bifurcation) graft (replacement), initial encounter Status: Acute (5) Anxiety and depression: Code(s): F41.9 - Anxiety disorder, unspecified; F32.9 - Major depressive disorder, single episode, unspecified Status: Acute Plan 87-year-old white female with a history of COPD with 2.5 L of oxygen dependence , questionable history of congestive heart failure presents with one week history of increasing progressive shortness of breath and productive cough along with abdominal pain. Acute on chronic COPD exacerbation with underlying upper respiratory infection- breathing has improved. Continue nebs, wean oxygen as tolerated.Prednisone discontinued--completed course. H/o congestive heart failure-patient does not appear volume overloaded clinically,continue PO lasix. 2 D ECHO-LVEF 40-45%,global LV dysfunction, moderate TR. Atrial fibrillation w RVR-Had a wide complex tachy which was determined to be Afib w aberrancy. appreciate cardiology recs.rates better controlled after being resumed on Metoprolol, and PO Cardizem started. Continue Eliquis for anticoagulation. HTN-BP was on lower side today, lisinopril on hold. 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 Vascular surgery does not feel this is etiology of her abdominal pain. Currently she does not complain of active abdominal pain. appreciate vascular surg recs, follow up as outpatient in 1 month. Depression- psych consulted, appreciate recs Increased Paxil to 30mg daily. did not increase gabapentin since patient had some somnolence. Constipation: improved, had bowel movement today, continue prn regimen. DVT prophylaxis Eliquis PT/OT recommend rehab--pending placement. Patient can be transferred to med surg DISPO--can be discharged to rehab whenever a bed becomes available. Progress Note: Quality VTE Deep Vein Thrombosis/Pulmonary Embolism Present on Admission: No _ (1) CHF (congestive heart failure) Qualifiers: Heart failure chronicity: Heart failure type: other Qualified Code(s): I50.9 - Heart failure, unspecified (2) Endoleak post endovascular aneurysm repair Qualifiers: Encounter type: initial encounter Qualified Code(s): T82.330A - Leakage of aortic (bifurcation) graft (replacement), initial encounter
[2018-05-13] MEDS: dilTIAZem 30 MG Tablet PO SCH ×4 (08:40→21:19)
[2018-05-13] MEDS: Gabapentin 100 MG Capsule PO SCH (08:40)
[2018-05-13] MEDS: Furosemide 40 MG Tablet PO SCH (08:41)
[2018-05-13] MEDS: Senna/Docusate Sodium 8.6/50 MG Tablet PO SCH ×2 (08:41→21:18)
[2018-05-13] MEDS: Metoprolol Tartrate 50 MG Tablet PO SCH ×2 (08:41→21:18)
[2018-05-13 10:08] LABS: Carbon Dioxide 29.3 meq/L (21.0-32.0); Potassium 4.7 meq/L (3.5-5.1)
--- NOTE | 2018-05-13 11:55 | P.PNIM ---
Subjective Interval history: Follow-up COPD and heart failure. States she wants to be left alone wants to go back to sleep. Currently on 2 L. Physical Exam Vital signs: Last Vital Signs Temp 99.3 F 05/13/18 08:00 Pulse 87 05/13/18 08:00 Resp 22 05/13/18 08:00 BP 125/88 05/13/18 08:00 Pulse Ox 92 L 05/13/18 08:00 Intake & Output 05/11/18 05/12/18 05/13/18 05/14/18 06:59 06:59 06:59 06:59 Intake Total 2430 / 2430 960 / 960 960 / 960 Output Total 2800 / 2800 1350 / 1350 1800 / 1800 Balance -370 / -370 -390 / -390 -840 / -840 Weight 72.9 kg 72 kg 73.6 kg Narrative: GENERAL: elderly woman, not in distress. CARDIOVASCULAR: Irregularly irregular without murmurs, gallops, or rubs. RESPIRATORY: Clear to auscultation. Breath sounds equal bilaterally. No wheezes , rales, or rhonchi. GASTROINTESTINAL: Abdomen nondistended, soft, non-tender, . Normal active bowel sounds MUSCULOSKELETAL: Extremities without clubbing, cyanosis, or edema. NEURO: Alert & Oriented x4 to person, place, time, situation. Moves all ext x4 Urinary Catheter Management Straight: Cath placed during this visit: yes, but has since been removed by the nurse Insertion date: 05/05/18 Insertion time: 17:20 Removal date: 05/05/18 Removal time: 17:24 Results Labs CBC & Chem 7: 05/07/18 07:35 05/13/18 08:45 Procedures Procedures: none Assessment and Plan (1) Wide-complex tachycardia: Code(s): I47.2 - Ventricular tachycardia Status: Acute (2) Atrial fibrillation with rapid ventricular response: Code(s): I48.91 - Unspecified atrial fibrillation Status: Acute (3) CHF (congestive heart failure): Code(s): I50.9 - Heart failure, unspecified Status: Acute (4) Endoleak post endovascular aneurysm repair: Code(s): T82.330A - Leakage of aortic (bifurcation) graft (replacement), initial encounter Status: Acute (5) Anxiety and depression: Code(s): F41.9 - Anxiety disorder, unspecified; F32.9 - Major depressive disorder, single episode, unspecified Status: Acute Plan 87-year-old white female with a history of COPD with 2.5 L of oxygen dependence , questionable history of congestive heart failure presents with one week history of increasing progressive shortness of breath and productive cough along with abdominal pain. Acute on chronic COPD exacerbation with underlying upper respiratory infection- breathing has improved. Continue nebs, wean oxygen as tolerated.Prednisone discontinued--completed course. H/o congestive heart failure-patient does not appear volume overloaded clinically,continue PO lasix. 2 D ECHO-LVEF 40-45%,global LV dysfunction, moderate TR. Hyponatremia sodium 128. Patient is asymptomatic. Likely related to heart failure and Lasix. Head CT and chest x-ray noted. Will repeat sodium before discharge atrial fibrillation w RVR-Had a wide complex tachy which was determined to be Afib w aberrancy. appreciate cardiology recs.rates better controlled after being resumed on Metoprolol, and PO Cardizem started. Continue Eliquis for anticoagulation. HTN-BP was on lower side lisinopril on hold. 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 Vascular surgery does not feel this is etiology of her abdominal pain. Currently she does not complain of active abdominal pain. appreciate vascular surg recs, follow up as outpatient in 1 month. Depression- psych consulted, appreciate recs Increased Paxil to 30mg daily. did not increase gabapentin since patient had some somnolence. Constipation: improvedontinue prn regimen. DVT prophylaxis Eliquis PT/OT recommend rehab--pending placement. Patient can be transferred to med surg DISPO--can be discharged to rehab whenever a bed becomes available. Progress Note: Quality VTE Deep Vein Thrombosis/Pulmonary Embolism Present on Admission: No _ (1) CHF (congestive heart failure) Qualifiers: Heart failure chronicity: Heart failure type: other Qualified Code(s): I50.9 - Heart failure, unspecified (2) Endoleak post endovascular aneurysm repair Qualifiers: Encounter type: initial encounter Qualified Code(s): T82.330A - Leakage of aortic (bifurcation) graft (replacement), initial encounter
--- NOTE | 2018-05-13 12:03 | P.DS ---
DS: Providers Date of admission: 05/06/18 15:36 Primary care physician: UNKNOWN Consults: 05/09/18 13:39 Consult to Psychiatry Routine Consulting Provider: Alex Hurley Reason for Consultation: depression Spoke with:: FLETCHER Date Notified:: 05/09/18 Time Notified:: 13:44 Ordering Provider: MARY ANNE 05/12/18 08:28 HUB Only Consult Order Routine Consulting Provider: [facility],Agency 05/05/18 21:32 Consult to Vascular Surgery Routine Consulting Provider: Rodo Hawthorne Preferred Wood Miller:: Rodo Hawthorne Patient known to:: Rodo Hawthorne Reason for Consultation: Possible AAA endoleak aware, routine consult for AM Spoke with:: adding to list - call in AM Date Notified:: 05/05/18 Time Notified:: 22:37 Ordering Provider: SAUNDRA 05/05/18 22:08 HUB Only Consult Order Routine Consulting Provider: Shant Bran 05/06/18 15:36 Consult to Cardiology Routine Consulting Provider: Deon Loredo Does the patient have a Resource Recovery Engineer who follows them?: No Preferred Exhaust And Muffler Repairer:: Heading And Priming Operator Physician Reason for Consultation: CHF exacerbation with nonsustained V. tach Notified:: Service Spoke with:: MARISOL Date Notified:: 05/06/18 Time Notified:: 15:59 Ordering Provider: FERCHO Brief History from admission: This is an 87-year-old female with a PMH of Anxiety, Depression, A-fib, COPD and CHF who was brought to the ER from [facility] for complaints of SOB and abdominal pain. Pt is very poor historian, difficult to obtain history due to significant anxiety and agitation. Does state she's been having abdominal pain "for a long time". Denies nausea or vomiting. Notes SOB somewhat improved, denies chest pain. On arrival, BP 125/58, HR 66, O2 sat 98% on RA, Afebrile. While in ER had episode of A-fib w/ RVR, HR 120's s/p Metoprolol w/ improvement, has not taken home meds today. CBC unremarkable. Chemistry essentially unremarkable. Troponin negative. BNP 905. UA negative. CT Head no acute findings. CXR with cardiomegaly and small pleural effusions. CT Abdomen/Pelvis endovascular repair of large abdominal aortic aneurysm with possible small endoleak. Dr. Hawthorne consulted, will eval in am, no emergent surgical intervention indicated. DS: Diagnosis Discharge Diagnosis (1) Wide-complex tachycardia: Status: Acute (2) Atrial fibrillation with rapid ventricular response: Status: Acute (3) CHF (congestive heart failure): Status: Acute (4) Endoleak post endovascular aneurysm repair: Status: Acute (5) Anxiety and depression: Status: Acute DS: Summary 87-year-old white female with a history of COPD with 2.5 L of oxygen dependence , questionable history of congestive heart failure presents with one week history of increasing progressive shortness of breath and productive cough along with abdominal pain. Acute on chronic COPD exacerbation with underlying upper respiratory infection- breathing has improved. Continue nebs, wean oxygen as tolerated.Prednisone discontinued--completed course. H/o congestive heart failure-patient does not appear volume overloaded clinically,continue PO lasix. 2 D ECHO-LVEF 40-45%,global LV dysfunction, moderate TR. Hyponatremia sodium 128. Patient is asymptomatic. Likely related to heart failure. Head CT and chest x-ray noted. Stable atrial fibrillation w RVR-Had a wide complex tachy which was determined to be Afib w aberrancy. appreciate cardiology recs.rates better controlled after being resumed on Metoprolol, and PO Cardizem started. Continue Eliquis for anticoagulation. HTN-BP was on lower side lisinopril on hold. 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 Vascular surgery does not feel this is etiology of her abdominal pain. Currently she does not complain of active abdominal pain. appreciate vascular surg recs, follow up as outpatient in 1 month. Depression- psych consulted, appreciate recs Increased Paxil to 30mg daily. did not increase gabapentin since patient had some somnolence. Constipation: improved continue prn regimen. DVT prophylaxis Eliquis PT/OT recommend rehab-- DISPO--can be discharged to rehab whenever a bed becomes available. Time Spent with Patient Total time spent providing and/or coordinating discharge services: Greater than 30 minutes Quality: VTE Deep Vein Thrombosis/Pulmonary Embolism Present on Admission: No Exam Narrative Exam Narrative: GENERAL: elderly woman, not in distress. CARDIOVASCULAR: Irregularly irregular without murmurs, gallops, or rubs. RESPIRATORY: Clear to auscultation. Breath sounds equal bilaterally. No wheezes , rales, or rhonchi. GASTROINTESTINAL: Abdomen nondistended, soft, non-tender, . Normal active bowel sounds MUSCULOSKELETAL: Extremities without clubbing, cyanosis, or edema. NEURO: Alert & Oriented x4 to person, place, time, situation. Moves all ext x4 Results Labs on day of discharge: Labs from last 24 hours 05/13/18 08:45 Sodium 128 L Potassium 4.7 Chloride 95 L Carbon Dioxide 29.3 Anion Gap 4 L BUN 20 H Creatinine 0.71 Estimated GFR 78 L Random Glucose 99 Calcium 9.0 Impressions ITS Impressions Chest X-Ray 05/05/18 16:18 CONCLUSION: Head CT 05/05/18 16:18 CONCLUSION: 1. No acute findings. Mild chronic white matter ischemic changes. . Abdomen/Pelvis CT 05/05/18 19:33 CONCLUSION: 1. Status post endovascular repair of a large abdominal aortic aneurysm with possible small endoleak inferiorly within the aneurysm sac. 2. Otherwise no acute findings within the abdomen and pelvis. No bowel obstruction, free fluid or free air. 3. Small to moderate right pleural effusion with right basilar and mild left basilar airspace disease. Cardiomegaly. Discharge Plan Discharge Disposition Patient Disposition: 03 Discharge to SNF Discharge Condition Condition: Stable Discharge Order Discharge Orders: Discharge Order (Routine); Ordered 05/13/18 Ordered By: Aurelio Adam Discharge Details Anticipated Discharge Date: 05/14/18 Physicians Team ED Provider: Ghassan Weller ED Midlevel Provider: Naye Maloney Primary Care Provider: UNKNOWN, Attending Provider: Aurelio Adam Other Providers: Rodo Hawthorne ; Shant Bran ; Deon Loredo ; Alex Hurley ; [facility],Agency Rxs /Orders / Referrals /Forms Prescriptions: New diltiazem HCl [Cardizem CD] 120 mg capsule,extended release 24hr 120 mg PO DAILY Qty: 30 RF: 0 potassium chloride 20 mEq Tablet,Er Particles/Crystals 20 meq PO BID Qty: 60 RF: 0 Continue quinapril 20 mg Tablet 20 mg PO BID RF: 0 furosemide 40 mg Tablet 40 mg PO DAILY RF: 0 atorvastatin 10 mg Tablet 10 mg PO DAILY RF: 0 pantoprazole 40 mg Tablet,Delayed Release (Dr/Ec) 40 mg PO DAILY RF: 0 metoprolol tartrate 50 mg Tablet 50 mg PO BID RF: 0 aspirin 81 mg Tablet,Chewable 81 mg PO DAILY RF: 0 gabapentin 100 mg Capsule 200 mg PO DAILY RF: 0 apixaban [Eliquis] 2.5 mg Tablet 2.5 mg PO BID RF: 0 Changed paroxetine HCl 20 mg Tablet 30 mg PO DAILY Qty: 0 RF: 0 Discontinued potassium chloride 10 mEq Capsule, Extended Release 10 meq PO BID RF: 0 Ambulatory Orders / Order Sets / DME: Basic Metabolic Panel (Routine) Timeframe: [id number] Location: Determined by Patient Ordered By: Aurelio Adam Referrals: Rodo Hawthorne MD [Physician] - See Instructions (will schedule follow-up appointment in 1 month. Office will call patient with appointment) [facility] [Agency] - See Instructions UNKNOWN, [Primary Care Provider] - See Instructions (PCP f/u 3 days) Deon Loredo DO [Physician] - See Instructions Discharge Instructions Patient Printed Instructions: Diltiazem (By mouth), Potassium Chloride (By mouth) Post Discharge Care Plan Care Plan Goals: Your Health Problems: Goals to Promote Your Health: * To prevent worsening of your condition * To maintain your health at the optimal level Directions to Meet Your Goals: * Take your medications as prescribed * Follow your dietary instruction * Follow activity as directed * Keep your appointments as scheduled * Take your immunizations and boosters as scheduled * If your symptoms worsen call your PCP * If no PCP go to Urgent Care or Emergency Room Smoking is dangerous to your health. Avoid second hand smoke. You may reach the 24-hour crisis hotline for domestic abuse at . Status ED Status: Left Department Discharge Information Discharge Date/Time: 05/14/18 12:03
[2018-05-13 12:52] LABS: Carbon Dioxide 30.2 meq/L (21.0-32.0); Potassium 4.4 meq/L (3.5-5.1)
[2018-05-14 08:22] LABS: Anion Gap 7 meq/L (5-15); Blood Urea Nitrogen 15 mg/dL (7-18); Calcium 9.2 mg/dL (8.5-10.1); Carbon Dioxide 28.5 meq/L (21.0-32.0); Chloride 93 meq/L (98-107); Glomerular Filtration Rate Greater Than 89 mL/min (>89); Glucose,Random 97 mg/dL (74-106); Potassium 4.7 meq/L (3.5-5.1); Sodium 128 meq/L (136-145)
[2018-05-14] MEDS: Metoprolol Tartrate 50 MG Tablet PO SCH (09:03)
[2018-05-14] MEDS: Furosemide 40 MG Tablet PO SCH (09:03)
[2018-05-14] MEDS: Gabapentin 100 MG Capsule PO SCH (09:03)
[2018-05-14] MEDS: Senna/Docusate Sodium 8.6/50 MG Tablet PO SCH (09:04)
[2018-05-14] MEDS: dilTIAZem 30 MG Tablet PO SCH (09:04)
[2018-05-14 09:12] VITALS: BP 135/92; RESP 20; TEMP 98.8
[2018-05-14 11:14] VITALS: O2SAT 92
[2018-05-14 11:41] VITALS: PULSE 89
== END 2018-05-14 12:03 | DRG 308 ==
LOC: NEPE 14:59 → NEDA 14:59 → NEPFCDU 23:12 → HCIS 05-06 21:56
PROVIDERS: ADMIT Internal Medicine; ATTEND Internal Medicine
DX: R10.9 Unspecified abdominal pain; I47.2 Ventricular tachycardia; Z99.81 Dependence on supplemental oxygen; I50.23 Acute on chronic systolic (congestive) heart failure; Z79.82 Long term (current) use of aspirin; I48.91 Unspecified atrial fibrillation; E87.1 Hypo-osmolality and hyponatremia; F43.21 Adjustment disorder with depressed mood; K59.00 Constipation, unspecified; J06.9 Acute upper respiratory infection, unspecified; Z98.890 Other specified postprocedural states; Y83.2 Surgical operation with anastomosis, bypass or graft as the cause of abnormal reaction of the patient, or of later complication, without mention of misadventure at the time of the procedure; R54 Age-related physical debility; Z79.01 Long term (current) use of anticoagulants; Z86.79 Personal history of other diseases of the circulatory system; Z88.0 Allergy status to penicillin; F41.9 Anxiety disorder, unspecified; J44.1 Chronic obstructive pulmonary disease with (acute) exacerbation; I11.0 Hypertensive heart disease with heart failure; Z87.891 Personal history of nicotine dependence; T82.330A Leakage of aortic (bifurcation) graft (replacement), initial encounter
CPT/HCPCS: 51702; 70450; 71010; 71045; 74177; 80048; 80053; 81001; 83520; 83735; 83880; 84443; 84484; 85025; 90774; 90775; 90784; 93005; 93306; 94640; 94665; 96374; 96375; 97110; 97116; 97162; 99285; C8952; G0378; J1940; J2060; J7506; J7512; Q9967